=== PATIENT | male | born 1965 | race Caucasian/White ===

== ENCOUNTER 2016-06-10 05:56 | Emergency (ER) | payer OTHER, MEDICARE ==
[~2016-06-10] VITALS: Ht 182.9 cm; Wt 90.7 kg
[~2016-06-10 05:56] MED LIST: ADVAIR 250-501 EACH INH; ARIPIPRAZOLE5 M1 PO; ATIVAN1 M1 PO; ATIVAN1 MG PO; ATORVASTATIN CA10 M1 PO; AUGMENTIN 875 M1 TAB PO; CARDIZEM CD180 M1 PO; CARDIZEM CD180 MG PO; CENTRUM SILVER1 TAB PO; CLEOCIN HCL150 MG PO; CLEOCIN HCL300 MG PO; DIVALPROEX SOD250 M3 PO; FENOFIBRIC ACI135 M1 PO; FOLIC ACID 1 MG PO; GABAPENTIN300 M2 PO; GLIMEPIRIDE4 M1 PO; GLIMEPIRIDE4 MG PO; HEP-FORTE1 CAP PO; HYDROCODONE/ACE1 TA1 PO; HYDROXYZINE HYD50 MG PO; IBU800 MG PO; IBUPROFEN600 M1 PO; JANUVIA100 M1 PO; LISINOPRIL10 MG PO; LISINOPRIL30 M1 PO; LITHIUM CARBON450 M1 PO; LYRICA50 MG PO; MAGNESIUM OXID400 MG PO; METFORMIN HCL1000 M1 PO; METFORMIN HYD1000 MG PO; MOBIC15 MG PO; MULTI VITAMINS1 TAB PO; NICODERM C14 MG/24 H TOP; OCUFLOX5 ML OPH; OLANZAPINE15 MG PO; OLANZAPINE20 M1 PO; PERCOCET 325 MG1 TA2 PO; PERPHENAZINE4 MG PO; PREDNISONE50 M1 PO; PROBIOTIC FORMU1 CAP PO; PROVENTIL HFA6.7 GM INH; TOPCARE ASPIRI325 MG PO; TYLENOL #31 TAB PO; VENTOLIN HFA18 GM INH; VITAMIN B1100 MG PO; ZYPREXA10 M1 PO
[2016-06-10 06:07] VITALS: BP 113/67
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
--- NOTE | 2016-06-10 06:40 | RADIOLOGY REPORT ---
EXAMINATION: XR RIBS, LEFT CLINICAL INFORMATION: Fall. Left lower rib tenderness. COMPARISON: Chest radiograph 01/17/2016. TECHNIQUE: An AP view of the chest was obtained. 6 additional oblique projections of the left hemithorax were obtained. FINDINGS: There is a somewhat displaced acute fracture involving the anterior aspect of the left sixth rib near its costochondral articulation. There is no pneumothorax. Lungs are well-expanded. No focal consolidative disease or pleural effusion. The cardiac silhouette and upper mediastinal contours are normal. IMPRESSION: Acute nondisplaced left sixth rib fracture.
[2016-06-10] MEDS ORDERED: IBUPROFEN600 M1 PO (06:44)
[2016-06-10] MEDS ORDERED: PERCOCET 5-3251 EACH PO (06:44)
== END 2016-06-10 07:03 ==
LOC: ERH 05:56
DX: S22.32XA Fracture of one rib, left side, initial encounter for closed fracture (principal); X58.XXXA Exposure to other specified factors, initial encounter; Y93.9 Activity, unspecified; Y92.9 Unspecified place or not applicable
CPT/HCPCS: 71100-LT

== ENCOUNTER 2016-06-28 15:23 | Emergency (ER) | payer OTHER, MEDICARE ==
[~2016-06-28] VITALS: Ht 180.3 cm; Wt 90.7 kg
[~2016-06-28 15:23] MED LIST changes: +PERCOCET 5-3251 EACH PO
[2016-06-28] MEDS ORDERED: MULTI-DAY VITA1 EACH PO (16:02)
[2016-06-28] MEDS ORDERED: ASPIRIN EC325 M2 PO (16:02)
[2016-06-28] MEDS ORDERED: ABILIFY30 M1 PO (16:04)
[2016-06-28] MEDS ORDERED: MAGNESIUM500 M2 PO (16:04)
[2016-06-28] MEDS ORDERED: FOLIC ACID1 M1 PO (16:05)
[2016-06-28] MEDS ORDERED: LANTUS SOL100 UNIT/1 SC (16:07)
[2016-06-28] MEDS ORDERED: MIRTAZAPINE15 M2 (16:07)
[2016-06-28] MEDS ORDERED: NALTREXONE HCL50 M1 PO (16:08)
--- NOTE | 2016-06-28 16:46 | ED PSYCHIATRIC COMPLAINT ---
History of Present Illness General Chief Complaint: ETOH/Drug Related Complaint Stated Complaint: ETOH DETOX, ALSO PSYCHIATRIC HELP PER FRIEND Source: patient, old records Exam Limitations: no limitations Vital Signs & Intake/Output Vital Signs & Intake/Output Vital Signs Date Time Temp Pulse Resp B/P B/P Pulse O2 O2 Flow FiO2 Mean Ox Delivery Rate 06/29 0957 97.1 94 18 158/87 99 06/29 0537 98 18 153/82 06/29 0536 98.6 98 18 153/82 98 Room Air 06/29 0320 98.0 100 18 146/73 06/29 0320 98.3 100 18 146/73 98 Room Air 06/29 0224 98.2 102 18 144/71 98 Room Air 06/29 0133 97.0 97 20 152/78 06/29 0133 97.0 97 20 152/78 98 Room Air 06/29 0000 97.2 108 20 152/85 06/29 0000 97.2 108 20 152/85 100 Room Air 06/28 2110 97.0 98 18 145/80 06/28 2100 97.0 98 18 145/80 100 Room Air 06/28 1929 97.0 99 18 143/79 06/28 1928 97.0 99 18 143/79 98 Room Air 06/28 1816 96.2 100 20 143/80 98 Room Air 06/28 1547 98.1 100 16 145/87 99 Room Air ED Intake and Output 06/29 0000 06/28 1200 Intake Total 100 Output Total Balance 100 Intake, Oral 100 Patient 200 lb Weight Reconcile Medications Albuterol Sulfate (Proventil Hfa) 6.7 GM HFA.AER.AD 2 PUF INH Q4 WHEEZING Aripiprazole (Abilify) 30 MG TABLET 1 TAB PO DAILY MENTAL HEALTH (Reported) Aspirin (Ecotrin*) 325 MG TABLET.DR 1 TAB PO QAM HEART/BLOOD (Reported) Atorvastatin Calcium 10 MG TABLET 1 TAB PO DAILY CHOLESTEROL (Reported) Diltiazem HCl (Cardizem Cd) 180 MG CAP.ER.24H 1 CAP PO DAILY HEART (Reported ) Fenofibric Acid (Choline) (Fenofibric Acid) 135 MG CAPSULE.DR 1 CAP PO DAILY CHOLESTEROL (Reported) Fluticasone/Salmeterol (Advair 250-50 Diskus) 250 MCG-50 MCG/DOSE BLST.W.DEV 1 PUF INH BID SOB (Reported) Folic Acid 1 MG TABLET 1 TAB PO DAILY SUPPLEMENT (Reported) Glimepiride 4 MG TABLET 1 TAB PO BID DM (Reported) Ibuprofen 600 MG TABLET 1 TAB PO Q6PRN PRN pain with food Insulin Glargine,Hum.rec.anlog (Lantus Solostar) 100 UNIT/ML (3 ML) INSULN.PEN 20 UNIT SC QPM DM (Reported) Lisinopril 30 MG TABLET 1 TAB PO DAILY B/P (Reported) Magnesium Oxide (Magnesium) 500 MG CAPSULE 1 CAP PO DAILY SUPPLEMENT ( Reported) Mirtazapine (Unknown Strength) TABLET (Unknown Dose) UNKNOWN (Reported) Multivitamin (Multi-Day Vitamins) 1 EACH TABLET 1 TAB PO DAILY SUPPLEMENT ( Reported) Naltrexone HCl (Unknown Strength) TABLET (Unknown Dose) PO DAILY UNKNOWN ( Reported) Olanzapine 20 MG TABLET 1 TAB PO QPM MENTAL HEALTH (Reported) Olanzapine (Zyprexa) 10 MG TABLET 1 TAB PO QAM MENTAL HEALTH (Reported) Sitagliptin Phosphate (Januvia) 100 MG TABLET 1 TAB PO DAILY DIABETES ( Reported) Triage Note: PT STATES HE WENT TO GROUP AND WITH HIS HEAVY DRINKING OF ETOH THE CHOREOGRAPHY DIRECTOR FELT IT WAS TIME FOR HIM TO COME IN FOR HELP. PT DENIES SI OR HI. PT STATES HE DID SMOKE COCAINE ON MONDAY. PT LAST DRANK 1 HOUR AGO AND STATES HE WAS DRINKING VODKA. Triage Nurses Notes Reviewed? yes Onset: Just prior to arrival Duration: week(s):, constant, continues in ED Timing: recent history Severity: moderate Associated Symptoms: anxiety, impaired concentration, auditory hallucination HPI: Patient admits to heavy alcohol abuse trying to treat his auditory hallucination. He also admits to some cocaine use. Prior to admission he was at a group meeting and was urged to seek alcohol detox. Denies fever chills nausea vomiting diarrhea abdominal pain chest pain shortness breath headache dysuria rash bleeding homicidal ideation suicidal ideation. Reports when he stops taking alcohol he just feels weak without DTs or withdrawal seizures. (SELENA COSTELLO,JUANCARLOS) Allergies Coded Allergies: Penicillins (HAD A KID 06/28/16) quetiapine (Restless legs, difficulty breathing (From 2009) on 1000 mg/d ) (FAUZIA COSTELLO,ENRIQUE Frye) Past History Travel History Traveled to [place] past 21 day No Medical History Any Pertinent Medical History? 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 MOTHER (Ovarian Cancer). FATHER (Prostate cancer). Hx Contributory? No (JUANCARLOS WALTERS MD) Review of Systems Review of Systems Constitutional: Reports: no symptoms. EENTM: Reports: no symptoms. Respiratory: Reports: no symptoms. Cardiovascular: Reports: no symptoms. GI: Reports: no symptoms. Genitourinary: Reports: no symptoms. Musculoskeletal: Reports: no symptoms. Skin: Reports: no symptoms. Neurological/Psychological: Reports: see HPI, anxiety. Hematologic/Endocrine: Reports: no symptoms. Immunologic/Allergic: Reports: no symptoms. All Other Systems: Reviewed and Negative (JUANCARLOS WALTERS MD) Physical Exam Physical Exam General Appearance: well developed/nourished, alert, awake, anxious, mild distress Head: atraumatic, normal appearance Eyes: Bilateral: normal appearance, PERRL, EOMI. 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 patient not suicidal (SELENA COSTELLO,JUANCARLOS) Progress Differential Diagnosis: drug intoxication, drug overdose, drug withdrawal, electrolyte abnormality, hypoglycemia Plan of Care: Orders Procedure Date/time Status Regular Diet 06/29 B Active Regular Diet 06/28 D Complete EKG 06/28 2356 Active CIWA 06/28 1824 Active Patient Safety Monitor 06/28 164 Active ETHANOL 06/28 1646 Complete COMPREHENSIVE METABOLIC PANEL 06/28 1646 Complete CBC WITHOUT DIFFERENTIAL 06/28 1646 Complete ED CRISIS PSYCH CONSULT 06/28 1646 Active URINE DRUG SCREEN FOR ER ONLY 06/28 1557 Complete Current Medications Sig/Magdaleno Start time Last Medication Dose Stop Time Status Admin Albuterol Sulfate 2 PUF Q4 06/28 2199 AC 06/28 (Ventolin) 2108 Budesonide/ 2 PUF BID 06/28 2199 AC 06/29 Formoterol Fumarate 0958 (Symbicort) Olanzapine 20 MG QPM 06/28 2199 UNVr 06/28 (Zyprexa) 2108 Non-Formulary 0 SEE ADMIN CRITERIA 06/28 2014 UNVr Medication (NON FORMULARY) Laboratory Tests 06/28/16 1715: Anion Gap 15, Estimated GFR 59 L, BUN/Creatinine Ratio 15.4, Glucose 164 H, Calcium 10.0, Total Bilirubin 0.4, AST 76 H, ALT 54, Alkaline Phosphatase 68, Total Protein 7.4, Albumin 4.5, Globulin 2.9, Albumin/Globulin Ratio 1.6, CBC w Diff NO MAN DIFF REQ, RBC 3.35 L, MCV 94.9 H, MCH 31.5 H, RDW 14.4, MPV 6.7 L, Gran % 72.7, Lymphocytes % 20.1 L, Monocytes % 5.0, Eosinophils % 1.3, Basophils % 0.9, Absolute Granulocytes 7.1 H, Absolute Lymphocytes 2.0, Absolute Monocytes 0.5, Absolute Eosinophils 0.1, Absolute Basophils 0.1, PUBS MCHC 33.2, Serum Alcohol 206.0 06/28/16 1600: Urine Opiates Screen < 100.00, Methadone Screen 49, Barbiturate Screen < 60, Ur Phencyclidine Scrn < 6.00, Amphetamines Screen < 100, U Benzodiazepines Scrn < 85, Urine Cocaine Screen 987 H, Urine Cannabis Screen 25.40 Hand-Off Endorsed To: MICHELLE COSTELLO,RAJENDRA Hayden Endorsed Time: 1899 Pending: consult (SELENA COSTELLO,JUANCARLOS) Comments: 06/29/2016 7:15:59 AM 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 (MICHELLE COSTELLO,RAJENDRA Hayden) Departure Departure Condition: Stable Referrals: JENNIFER NEGRO APRN (PCP/Family) Departure Forms: Customer Survey General Discharge Information (JUANCARLOS WALTERS MD) Departure Disposition: HOME OR SELF CARE Clinical Impression Primary Impression: Alcohol dependence with intoxication Qualifiers: Complication of substance-induced condition: with delirium Qualified Code: F10.221 - Alcohol dependence with intoxication delirium Secondary Impressions: Cocaine abuse, Schizophrenia Additional Instructions: Follow up with [facility] return for any concerns (FAUZIA COSTELLO,ENRIQUE Frye)
[2016-06-28 17:28] LABS: ABSOLUTE BASOPHIL COUNT 0.1 /CUMM (0.0-0.2); ABSOLUTE EOSINOPHIL COUNT 0.1 /CUMM (0.0-0.7); ABSOLUTE GRANULOCYTE CT 7.1 /CUMM (1.4-6.5); ABSOLUTE MONOCYTE COUNT 0.5 /CUMM (0.10-0.60); BASOPHIL % 0.9 % (0.0-2.0); EOSINOPHIL % 1.3 % (0-5); GRANULOCYTE % 72.7 % (42.2-75.2); HEMATOCRIT 31.8 % (42-52); MEAN CORPUSCULAR HGB 31.5 PG (27.0-31.0); MEAN CORPUSCULAR HGB CONC 33.2 G/DL (33.0-37.0); MEAN CORPUSCULAR VOLUME 94.9 FL (80.0-94.0); MEAN PLATELET VOLUME 6.7 FL (7.4-10.4); PLATELET COUNT 258 /CUMM (130-400); RBC DISTRIBUTION WIDTH 14.4 % (11.5-14.5); RED BLOOD CELL CT 3.35 /CUMM (4.70-6.10); WHITE BLOOD CELL COUNT 9.8 /CUMM (4.8-10.8)
--- NOTE | 2016-06-28 20:07 | ED PSY CRISIS COLLATERAL NOTE ---
Collateral Note Collateral Note Family/Inform/Kelly Contacts: Spoke with Tlaisha Madison ([phone]), to gain collateral information. Talisha notes that she has known the patient, "for a number of years," and they are good friends. Talisha notes that the patient is "Schizophrenic and a severe alcoholic. " Talisha notes that the patient generally hears beeps and bells when symptoms increase, noting that he was hearing them today. She notes that the patient is currently in treatment with [facility], however she does not believe him to be treatment compliant. She states in addition to the alcohol, she found him "smoking crack" on Monday. She notes that he is and that he has not see his children in over 20 years. SHe believes that he needs help for his alcohol abuse and his mental health issues. She was not clear which is the primary and which type of treatment he needed. She notes that she is taking care of his dog and that she will call tomorrow to check on the plan of care.
--- NOTE | 2016-06-29 09:09 | ED PSYCH CRISIS CONSULTATION ---
See Addendum Crisis Consult Basic Assessment Date of Consult: 06/29/16 Responsible Person/Accompanied By: Self/Talisha Madison [facility] [phone] Insurance Authorization: Insurance #1: Insurance name: MEDICARE A Phone number: Policy number: [id number] Group number: Authorization number: ED Provider: Patient's ED Provider: JUANCARLOS WALTERS MD Primary Care Physician: Patient's PCP: JENNIFER NEGRO APRN PCP's Current Psychiatrist: Crystal Morgan APRN at [facility] Chief Complaint: ETOH/Drug Related Complaint Patient's Quote: The voices get so intense, I'd rather drink than hear them." Present Illness: 50 M presents to ED 06/28/16 1525 with CC ETOH detox, last drink vodka one hour before. He had been in 1:1 session with his therapist, Noa Méndez, at [facility] that day, and he was told to come to the ED for help for his heavy alcohol use. He reports he drinks 1-1/2 pints of vodka daily. He reports he stopped smoking cannabis one month ago. He also smoked cocaine on 06/26/16. Please see serum/utox screen elsewhere in this report. He is followed by [facility] for psychotropic medications by Carito Morgan APRN. Last visit 06/24/16; next visit 07/06/16. Current psych medications: Naltrexone 50 mg PO bedtime Mirtazapine 15 mg PO bedtime Aripiprazole 30 mg PO daily Olanzapine 10 mg PO daily Olanzapine 20 mg PO bedtime Patient's Address: [address] [place] [address] Other Phone Number: Who Do You Live With? Patient/Self Family/Informants Interviewed: Friend, Talisha, collateral with clinician 06/28/16 ; see note. 06/28/16: Noa Méndez, clinician at Care: The patient should have a 28 day rehab program, but worries his brother, Riley, may not be able to care for his dog, a social support. dog Allergies - Coded Allergies: Penicillins (HAD A KID 06/29/16) quetiapine (Restless legs, difficulty breathing (From 2009) on 1000 mg/d ) Current Medications - Scheduled Medications Albuterol Sulfate (Proventil Hfa) 6.7 GM HFA.AER.AD 2 PUF INH Q4 WHEEZING #1 INHAL Prescribed by YOGESH SHORT MD on 12/11/15 Aripiprazole (Abilify) 30 MG TABLET 1 TAB PO DAILY MENTAL HEALTH #7 (Reported ) Entered as Reported by GOMEZ HUMPHREYS on 06/28/16 160 Aspirin (Ecotrin*) 325 MG TABLET. 1 TAB PO QAM HEART/BLOOD (Reported) Entered as Reported by GOMEZ HUMPHREYS on 06/28/16 160 Atorvastatin Calcium 10 MG TABLET 1 TAB PO DAILY CHOLESTEROL #90 (Reported) Entered as Reported by NOA OG on 11/06/15 191 Diltiazem HCl (Cardizem Cd) 180 MG CAP.ER.24H 1 CAP PO DAILY HEART #90 ( Reported) Entered as Reported by NOA OG on 11/06/15 191 Fenofibric Acid (Choline) (Fenofibric Acid) 135 MG CAPSULE. 1 CAP PO DAILY CHOLESTEROL #90 (Reported) Entered as Reported by NOA OG on 11/06/15 191 Fluticasone/Salmeterol (Advair 250-50 Diskus) 250 MCG-50 MCG/DOSE BLST.W.DEV 1 PUF INH BID SOB (Reported) Entered as Reported by LANCE RUELAS on 03/11/16 2222 Folic Acid 1 MG TABLET 1 TAB PO DAILY SUPPLEMENT (Reported) Entered as Reported by GOMEZ HUMPHREYS on 06/28/16 1605 Glimepiride 4 MG TABLET 1 TAB PO BID DM #90 (Reported) Entered as Reported by NOA OG on 11/06/15 191 Insulin Glargine,Hum.rec.anlog (Lantus Solostar) 100 UNIT/ML (3 ML) INSULN.PEN 20 UNIT SC QPM DM #15 (Reported) Entered as Reported by GOMEZ HUMPHREYS on 06/28/16 1607 Lisinopril 30 MG TABLET 1 TAB PO DAILY B/P #90 (Reported) Entered as Reported by NOA OG on 11/06/15 1913 Magnesium Oxide (Magnesium) 500 MG CAPSULE 1 CAP PO DAILY SUPPLEMENT ( Reported) Entered as Reported by GOMEZ HUMPHREYS on 06/28/16 1604 Multivitamin (Multi-Day Vitamins) 1 EACH TABLET 1 TAB PO DAILY SUPPLEMENT ( Reported) Entered as Reported by GOMEZ HUMPHREYS on 06/28/16 1602 Naltrexone HCl (Unknown Strength) TABLET (Unknown Dose) PO DAILY UNKNOWN #30 (Reported) Entered as Reported by GOMEZ HUMPHREYS on 06/28/16 1608 Olanzapine 20 MG TABLET 1 TAB PO QPM MENTAL HEALTH #90 (Reported) Entered as Reported by NOA OG on 11/06/15 1912 Olanzapine (Zyprexa) 10 MG TABLET 1 TAB PO QAM MENTAL HEALTH #30 (Reported) Entered as Reported by GOMEZ HUMPHREYS on 01/17/16 1813 Sitagliptin Phosphate (Januvia) 100 MG TABLET 1 TAB PO DAILY DIABETES #90 ( Reported) Entered as Reported by NOA OG on 11/06/15 1914 Scheduled PRN Medications Ibuprofen 600 MG TABLET 1 TAB PO Q6PRN PRN pain #50 TAB Prescribed by JUANCARLOS WALTERS MD on 06/10/16 Last Taken: At an unknown date and time Miscellaneous Medications Mirtazapine (Unknown Strength) TABLET (Unknown Dose) UNKNOWN #30 (Reported) Entered as Reported by GOMEZ HUMPHREYS on 06/28/16 1607 Laboratory Results: Laboratory Tests 06/28/16 1715: Anion Gap 15, Estimated GFR 59 L, BUN/Creatinine Ratio 15.4, Glucose 164 H, Calcium 10.0, Total Bilirubin 0.4, AST 76 H, ALT 54, Alkaline Phosphatase 68, Total Protein 7.4, Albumin 4.5, Globulin 2.9, Albumin/Globulin Ratio 1.6, CBC w Diff NO MAN DIFF REQ, RBC 3.35 L, MCV 94.9 H, MCH 31.5 H, RDW 14.4, MPV 6.7 L, Gran % 72.7, Lymphocytes % 20.1 L, Monocytes % 5.0, Eosinophils % 1.3, Basophils % 0.9, Absolute Granulocytes 7.1 H, Absolute Lymphocytes 2.0, Absolute Monocytes 0.5, Absolute Eosinophils 0.1, Absolute Basophils 0.1, PUBS MCHC 33.2, Serum Alcohol 206.0 06/28/16 1600: Urine Opiates Screen < 100.00, Methadone Screen 49, Barbiturate Screen < 60, Ur Phencyclidine Scrn < 6.00, Amphetamines Screen < 100, U Benzodiazepines Scrn < 85, Urine Cocaine Screen 987 H, Urine Cannabis Screen 25.40 Past History Past Medical History Neurological: peripheral neuropathy EENT: NONE Cardiovascular: hypertension, hyperlipidemia Respiratory: COPD Gastrointestinal: NONE Hepatic: NONE Renal: NONE Musculoskeletal: NONE Psychiatric: alcohol dependence, schizophrenia, substance abuse Endocrine: NIDDM Blood Disorders: NONE Cancer(s): NONE 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 Physical Limitations (Interventions): None known Psychiatric Treatment History Psych Treatment Psychiatric Treatment Yes Inpatient Treatment Yes Outpatient Treatment Yes Location of Treatment and [facility] Reason for Treatment Schizophrenia and alcohol/substance abuse Dates of Treatment Currently in [place] at Care Response to Treatment UNK Diagnosis by History: See below Substance Use/Abuse History Drug Use/Abuse Substances Used/Abused Yes Substance Used/Abused Alcohol How much used/taken 1-1/2 pints How often daily For how long Does not remember Substance Abuse Treatment Substance Abuse Treatment Past Substance Abuse [place] Yes Inpatient Treatment No (UNK) Outpatient Treatment Yes Location of Treatment [facility] 11/2015 Reason for Treatment ETOH, cannabis Response to Treatment Discharged, due to continued cannabis use and alcohol use on weekends. Comments: The patient reports he is ready and motivated for treatment at [facility]. Current Mental Status Mental Status Orientation: Person, Place, Situation Affect: Constricted Speech: Pressured Neuro-vegetative: Sleep Disturbance Behaviors Thought Process: One instance of loose association, but otherwise normal. Thought Content: Baseline auditory hallucinations; pt not in distress. Memory: WNL Insight: Fair SI/HI Risk Assessment Past Suicidal Ideation/Attempts No (Denies) Current Suicidal Ideation/Att No Past Homicidal Ideation/Att: No (Denies) Current Homicidal Ideation/Attempts No Degree of Intent: None Risk Factors: SA/MH hospitalized, substance abuse, lives alone, male PTSD Checklist PTSD Done? patient declined ED Management Sitter: No Restraints: No DSM5/PS Stressors/Medical Prob Diagnosis' (DSM 5, Stressors, Medical): F20.9 Schizophrenia (Continuous AH) F10.2 Alcohol Use DIsorder, Severe, Recurrent F12.1 Cannabis Use Disorder Current GAF: 42 Departure Disposition Psych Medical Clearance Date: 06/29/16 Medically Cleared at: 1026 Time Started: 809 Time Ended: 834 Psychiatrist Consulted: Romeo Machuca Date Disposition Established: 06/29/16 Time Disposition Established: 1027 Plan for Disposition - Modality: IOP Facility: [facility] Follow-up Appt Date: 06/30/16 Follow-Up Appt Time: 0900 Contact: Indu Rationale for Disposition: Breathalyzer 0.0 this morning. Not delirious. Baseline auditory hallucinations present but not distressing; medicated with home dosing of Zypreza and Abilify. IOP intake at 06/30/16 0900 Additional Instructions: Patient given a card with [facility] intake appointment, and verbalizes understanding that he will appear on , 06/30/16, at 0900, at [address] [place] [address]. He is to bring his photo ID and insurance card. Pt given number there - [phone]. He states that he has not used cannabis in one month, and will continue to avoid it. He will abstain from alcohol and other substances. Referrals JENNIFER NEGRO APRN (PCP/Family) [facility], then Care
[2016-06-29 09:57] VITALS: BP 158/87
== END 2016-06-29 10:33 ==
LOC: ERH 15:23
PROVIDERS: Emergency Medicine
DX: F10.229 Alcohol dependence with intoxication, unspecified (principal); F14.10 Cocaine abuse, uncomplicated; F20.9 Schizophrenia, unspecified
CPT/HCPCS: 80307; 93005; 93010; G0463; G0480; J3490

== ENCOUNTER 2017-05-27 01:00 | Emergency (ER) | payer OTHER, MEDICARE ==
[~2017-05-27] VITALS: Ht 180.3 cm; Wt 99.8 kg
[~2017-05-27 01:00] MED LIST changes: +ABILIFY30 M1 PO; +ASPIRIN EC325 M2 PO; +FOLIC ACID1 M1 PO; +LANTUS SOL100 UNIT/1 SC; +MAGNESIUM500 M2 PO; +MIRTAZAPINE15 M2; +MULTI-DAY VITA1 EACH PO; +NALTREXONE HCL50 M1 PO
[2017-05-27 01:33] VITALS: BP 130/77
== END 2017-05-27 02:43 | disposition admitted as inpatient to this hospital (09) ==
LOC: ERH 01:00
DX: E16.2 Hypoglycemia, unspecified (principal)

== ENCOUNTER 2017-06-23 15:17 | Inpatient (IN) | payer OTHER, MEDICARE ==
[~2017-06-23] VITALS: Ht 180.3 cm; Wt 88.1 kg
[~2017-06-23 15:17] MED LIST changes: +DAILY VALUE1 EACH PO; -MULTI-DAY VITA1 EACH PO; +PREDNISONE20 M1 PO
--- NOTE | 2017-06-23 15:58 | ED PSYCHIATRIC COMPLAINT ---
See Addendum History of Present Illness General Chief Complaint: Psychiatric Related Complaint Stated Complaint: PT STOPED TAKING HIS PSYCH MEDS Source: patient Exam Limitations: no limitations Vital Signs & Intake/Output Vital Signs & Intake/Output Vital Signs Date Time Temp Pulse Resp B/P B/P Pulse O2 O2 Flow FiO2 Mean Ox Delivery Rate 06/25 0059 97.5 100 18 133/81 100 Room Air 06/24 2241 97.7 110 20 124/64 96 06/24 1945 97.3 112 20 111/68 98 06/24 1611 98.1 113 20 116/56 98 Room Air 06/24 1303 97.9 96 20 142/77 98 Room Air 06/24 1100 98.1 97 18 144/69 06/24 1000 98.1 97 18 144/69 06/24 1000 98.1 97 18 144/69 99 06/24 0800 98.1 84 18 140/84 06/24 0800 98.1 84 18 140/84 98 Allergies Coded Allergies: Penicillins (HAD A KID 06/23/17) quetiapine (Restless legs, difficulty breathing (From 2009) on 1000 mg/d ) Triage Note: PT TO ED FOR RACING THOUGHTS, CAN'T CONCENTRATE. PT HAS STOPPED PSYCH MEDS A MONTH AGO. +VISUAL HALLUCINATIONS, "BRIGHT LIGHTS", AND FRIEND REPORTS HEARING VOICES (GOVERNMENT, "GOVERNMENT PUT CHIP IN MY BRAIN). PT BECAME EMOTIONAL IN TRIAGE AND REPORTS THAT HE WOULDN'T CARE IF HE . TAKEN TO [facility] Triage Nurses Notes Reviewed? yes Onset: Abrupt Duration: week(s): (4) Timing: recent history Severity: severe Severity Numbers: 9 Associated Symptoms: anxiety, impaired concentration, suicidal ideation HPI: Patient is a 51-year-old male with history of anxiety and depression presenting to the emergency department with a friend who with chief complaint of being off of his medications for the past one month. He reports that they were according to alleviate decided to stop taking them patient also reports that he self medicates with alcohol daily. Has been drinking several shots of vodka daily to help with symptoms. Last drink was just prior to arrival. Denies any drug use. Patient denies any active suicidal ideation, reports that if he were to he "wouldn't care". According to family members they have noticed that he is given off of his medications but the patient doesn't. Denies any abdominal pain chest pain palpitations and shortness of breath. Nothing seems to make symptoms better or worse. Denies any homicidal ideation. Reports that he thinks the government put a chip in his brain. Friend also reports that he's been having visual hallucinations, (Marisabel JIAN,Arcelia) Reconcile Medications Albuterol Sulfate (Proventil Hfa) 6.7 GM HFA.AER.AD 2 PUF INH Q4 WHEEZING Aspirin (Ecotrin*) 325 MG TABLET.DR 1 TAB PO QPM HEART/BLOOD (Reported) Benztropine Mesylate (Unknown Strength) TABLET (Unknown Dose) PO QPM MENTAL HEALTH (Reported) Diltiazem HCl (Cardizem Cd) 180 MG CAP.ER.24H 1 CAP PO DAILY HEART (Reported ) Fenofibric Acid (Choline) (Fenofibric Acid) 135 MG CAPSULE.DR 1 CAP PO DAILY CHOLESTEROL (Reported) Fluticasone/Salmeterol (Advair 250-50 Diskus) 250 MCG-50 MCG/DOSE BLST.W.DEV 1 PUF INH BID SOB (Reported) Gabapentin (Unknown Strength) CAPSULE (Unknown Dose) PO TID MOOD (Reported) Glimepiride 4 MG TABLET 1 TAB PO BID DM (Reported) Insulin Glargine,Hum.rec.anlog (Lantus Solostar) 100 UNIT/ML (3 ML) INSULN.PEN 25 UNIT SC QPM DM (Reported) Insulin Glargine,Hum.rec.anlog (Lantus Solostar) 100 UNIT/ML (3 ML) INSULN.PEN 15 UNITS SC QAM DM (Reported) Lisinopril 30 MG TABLET 1 TAB PO DAILY B/P (Reported) Magnesium Oxide (Magnesium) 400 MG CAPSULE 1 CAP PO DAILY SUPPLEMENT ( Reported) Multivitamin (Daily Value) 1 EACH TABLET 1 TAB PO DAILY SUPPLEMENT (Reported) Olanzapine 20 MG TABLET 1 TAB PO BID MENTAL HEALTH (Reported) Perphenazine (Unknown Strength) TABLET (Unknown Dose) PO QPM MENTAL HEALTH ( Reported) Sitagliptin Phosphate (Januvia) 100 MG TABLET 1 TAB PO DAILY DIABETES ( Reported) Vortioxetine Hydrobromide (Brintellix) (Unknown Strength) TABLET (Unknown Dose ) PO DAILY MENTAL HEALTH (Reported) (Dominique COSTELLO,Baldo.) Past History Travel History Traveled to [place] past 21 day No Medical History Any Pertinent Medical History? 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 MOTHER (Ovarian Cancer). FATHER (Prostate cancer). Hx Contributory? No (Arcelia Pollard) Review of Systems Review of Systems Constitutional: Reports: no symptoms. Comments Review of systems: See HPI, All other systems negative. Constitutional, no chills fever or weight loss HEENT: No visual changes no sore throat no congestion Cardiovascular: No chest pain ,palpitation Skin, no jaundice no rashes Respiratory: No dyspnea cough sputum or hemoptysis GI: No nausea no vomiting : No dysuria No hematuria Muscle skeletal: no back pain, no neck pain, Neurologic: No numbness no confusion NO HEADACHES Psych: POS ANXIETY, DEPRESSION Heme/endocrine: No bruising no bleeding no polyuria or polydipsia Immunology: No splenectomy or history of AIDS (Arcelia Pollard) Physical Exam Physical Exam General Appearance: well developed/nourished, no apparent distress, alert, awake , comfortable Neurological/Psychiatric: oriented x 3 Comments: Well-developed well-nourished person in no acute distress HEENT:Pupils equally round and reactive to light and accommodation. Nose is atraumatic. External auditory canal and Tympanic membranes clear. Pharynx normal. No swelling or edema. Neck: NORMAL INSPECTION Cardiovascular: TACHY rate and rhythmS Respiratory: Chest nontender. No respiratory distress.breath sounds clear to auscultation bilaterally Extremity: No edema Neuro: Alert oriented x3, CN2-12 GROSSLY INTACT. Skin: No appreciable rash on exposed skin, skin is warm and dry. Psych: ANXIOUS, REPORTS HALLUCINATIONS. Tangential thought process. appears intoxicated. SAD PERSONS Done? patient not suicidal (Marisabel JAIN,Arcelia) Progress Differential Diagnosis: generalized anxiety disorder, polysubstance abuse, alcohol abuse, alcohol withdrawal, electrolyte abnormality, thyroid dysfunction Plan of Care: Orders Procedure Date/time Status Continuous Observation Monitor 06/25 0700 Active Continuous Observation Monitor 06/25 0300 Active Continuous Observation Monitor 06/24 2300 Active Continuous Observation Monitor 06/24 1900 Active Current Medications Sig/Magdaleno Start time Last Medication Dose Stop Time Status Admin Aspirin Buffered 325 MG QPM 06/24 2100 CAN (Ecotrin) Insulin Detemir 25 UNITS QPM 06/24 2100 UNVr 06/24 (Levemir) 211 Metoclopramide HCl 8 MG ONCE ONE 06/24 1800 CAN (Reglan) 06/24 1801 Albuterol Sulfate 2 PUF Q4 06/24 1400 UNVr 06/24 (Ventolin) 211 Gabapentin 300 MG Q8 06/24 1400 UNVr 06/24 (Neurontin) 211 Perphenazine 4 MG BID 06/24 1036 UNVr 06/24 (Trilafon 2 MG 2116 Tablet) Sitagliptin Phosphate 100 MG DAILY 06/24 1034 UNVr 06/24 (JANUVIA) 1100 Lisinopril 20 MG DAILY 06/24 1033 UNVr 06/24 (Prinivil) 1100 Magnesium Oxide 400 MG DAILY 06/24 1033 UNVr 06/24 (Mag-Ox) 1100 Insulin Detemir 15 UNITS QAM 06/24 1025 UNVr 06/24 (Levemir) 1100 Budesonide/ 2 PUF BID 06/24 1024 UNVr 06/24 Formoterol Fumarate 211 (Symbicort) Glimepiride 1 MG DAILY AC 06/24 1024 CAN (Amaryl) Diltiazem HCl 180 MG DAILY 06/24 1023 CAN (Cardizem CD) Benztropine Mesylate 1 MG BID 06/24 1022 UNVr 06/24 (Cogentin 1 MG 2116 Tablet) Aripiprazole 30 MG DAILY 06/24 0900 UNVr 06/24 (Abilify) 0920 Aspirin 325 MG DAILY 06/24 0900 UNVr 06/24 (Aspirin) 0920 Diltiazem HCl 180 MG DAILY 06/24 0900 UNVr 06/24 (Cardizem CD) 0920 Glimepiride 4 MG 0800,1700 06/24 0800 AC 06/24 (Amaryl) 1835 Albuterol Sulfate 2 PUF Q4P PRN 06/23 2300 AC (Ventolin) Hand-Off Endorsed To: Mekhi Rangel DO Endorsed Time: 1999 Pending: consult Comments: Patient will be signed out to Dr. rangel pending consult from crisis. Patient will likely be holdover for re-eval in the morning. (Arcelia Pollard) Initial ED EKG: none (Mekhi Rangel DO) Hand-Off Endorsed To: Mekhi Rendno MD Endorsed Time: 0700 Pending: consult (Dominique COSTELLO,Randy Frye) Comments: 06/24/2017 7:08:43 AM patient signed out to me by Dr. Fox at shift loom changer. 06/24/2017 9:26:46 AM per crisis, bed search progress. 06/24/2017 7:24:16 PM patient signed out to Dr. Lal at shift loom changer. (Mekhi Rendon MD) Hand-Off Endorsed To: Mekhi Rendon MD Endorsed Time: 07 (Lukasz COSTELLO,Radu) Departure Departure Disposition: STILL A PATIENT Condition: Stable Clinical Impression Primary Impression: Anxiety Secondary Impressions: Alcohol abuse Referrals: Kayleen Robbins APRN (PCP/Family) Departure Forms: Customer Survey General Discharge Information (Arcelia Pollard) Departure Comments 06/23/17 8:30 PM Patient was signed out to me by Arcelia Petit. He is pending crisis evaluation. He will be signed out to Dr. Fox at 11 pm (Mekhi Rangel DO) PA/GRINDING ROOM SUPERVISOR Co-Sign Statement Statement: ED Attending supervision documentation- [X] I saw and evaluated the patient. I have also reviewed all the pertinent lab results and diagnostic results. I agree with the findings and the plan of care as documented in the PA's/GRINDING ROOM SUPERVISOR's documentation. [X] I have reviewed the ED Record and agree with the PA's/GRINDING ROOM SUPERVISOR's documentation. [] Additions or exceptions (if any) to the PAs/GRINDING ROOM SUPERVISOR's note and plan are summarized below: [] (Dominique COSTELLO,Randy Frye) Departure Forms: Customer Survey General Discharge Information (Marisabel JAIN,Arcelia) Departure Comments 06/23/17 8:30 PM Patient was signed out to me by Arcelia Petit. He is pending crisis evaluation. He will be signed out to Dr. Fox at 11 pm (Mekhi Rangel DO) PA/GRINDING ROOM SUPERVISOR Co-Sign Statement Statement: ED Attending supervision documentation- [X] I saw and evaluated the patient. I have also reviewed all the pertinent lab results and diagnostic results. I agree with the findings and the plan of care as documented in the PA's/GRINDING ROOM SUPERVISOR's documentation. [X] I have reviewed the ED Record and agree with the PA's/GRINDING ROOM SUPERVISOR's documentation. [] Additions or exceptions (if any) to the PAs/GRINDING ROOM SUPERVISOR's note and plan are summarized below: [] (Dominique COSTELLO,Randy Frye)
[2017-06-23 17:03] LABS: ABSOLUTE BASOPHIL COUNT 0.1 /CUMM (0.0-0.2); ABSOLUTE EOSINOPHIL COUNT 0.1 /CUMM (0.0-0.7); ABSOLUTE GRANULOCYTE CT 5.7 /CUMM (1.4-6.5); ABSOLUTE MONOCYTE COUNT 0.7 /CUMM (0.10-0.60); BASOPHIL % 0.8 % (0.0-2.0); EOSINOPHIL % 0.9 % (0-5); GRANULOCYTE % 59.4 % (42.2-75.2); HEMATOCRIT 37.5 % (42-52); MEAN CORPUSCULAR HGB 30.2 PG (27.0-31.0); MEAN CORPUSCULAR HGB CONC 33.3 G/DL (33.0-37.0); MEAN CORPUSCULAR VOLUME 90.7 FL (80.0-94.0); MEAN PLATELET VOLUME 7.8 FL (7.4-10.4); PLATELET COUNT 273 /CUMM (130-400); RBC DISTRIBUTION WIDTH 14.5 % (11.5-14.5); RED BLOOD CELL CT 4.14 /CUMM (4.70-6.10); WHITE BLOOD CELL COUNT 9.6 /CUMM (4.8-10.8)
[2017-06-23] MEDS ORDERED: LANTUS SOL100 UNIT/1 SC (21:22)
[2017-06-23] MEDS ORDERED: MAGNESIUM400 M1 PO (21:23)
[2017-06-23] MEDS ORDERED: PERPHENAZINE8 M1 PO (21:26)
[2017-06-23] MEDS ORDERED: GABAPENTIN400 M2 PO (21:27)
[2017-06-23] MEDS ORDERED: BENZTROPINE MESY2 M1 PO (21:28)
[2017-06-23] MEDS ORDERED: BRINTELLIX20 M1 PO (21:31)
[2017-06-24 00:54] VITALS: BP 149/96
[2017-06-24 03:28] VITALS: BP 162/89
[2017-06-24 06:09] VITALS: BP 137/82
[2017-06-24 08:00] VITALS: BP 140/84
--- NOTE | 2017-06-24 09:19 | ED PSYCH CRISIS CONSULTATION ---
See Addendum Crisis Consult Basic Assessment Date of Consult: 06/24/17 Responsible Person/Accompanied By: Brought in by friend Talisha Insurance Authorization: Insurance #1: Insurance name: MEDICARE A Phone number: Policy number: [id number] Group number: Authorization number: ED Provider: Patient's ED Provider: Mekhi Rangel DO Primary Care Physician: Patient's PCP: Kayleen Robbins APRN PCP's Current Psychiatrist: [facility] Chief Complaint: Psychiatric Related Complaint Patient's Quote: " I stopped taking my antipsychotic medications about 1.5 months ago." Present Illness: The patient is a 51 year old, male self presenting to the ED with worsening symptoms of depression and psychosis. The patient presents as alert, oriented, calm and cooperative with good insight into his symptoms. He has a long history of mental health and substance abuse issues with subsequent treatment episodes. He states that he has been taking antipsychotics for 30 years and he did not get any benefit from them, therefore about 1.5 months ago he stopped taking his medications. He has been in treatment with [facility], however states that he also stopped attending treatment about 1.5 months ago. He reports that he has been experiencing worsening depression (rating it a 7 or 8 out of 10, 10 being the most severe), anxiety (rating it a 10 out of 10, 10 being most severe) and increased paranoia, VH and AH. He states that he would like to restart medications, even though he does not think they will help. He reports feeling helpless, hopeless, useless and worthless secondary to his mental health issues. He has been hearing high pitched squealing, and notes that it is worrisome to him, because he does not know when it will stop and has no control over it. He has been seeing flashes of lights and shadows, noting that he has seen gremlins, in the past. He reports a long standing delusion that the government or police have put a chip in his brain, to see out of his eyes and to hear out of his ears. He states that because of the chip his dreams are sculpted by his brain, noting this is very distressing for him. He reports that the only thing that helps his symptoms is alcohol, therefore has been drinking 2 pints of vodka, daily. He reports that he has had decreased concentration, motivation and has been spending most of his days sleeping. He does not have active suicidal ideations or a plan, however wishes that he was and states that he would not care if he were . He states that his dog, Manju is the only thing he lives for and that he would not kill himself, because he would not do that to his dog. He has a history of smoking Cannabis, noting that he has only used 1 time in the last 6 months. He resides alone with his dog in an apartment, is and has 3 children (he only has contact with 1 daughter). He has been on Social Security Disability for the last 10 years. He reports that in addition to his mental health symptoms, that transportation is a significant issue for him. He does state that his friend, Talisha ([phone]), is very supportive and assists with transportation for him. SW spoke to Talisha, who states that the patient has been spiraling out of control. Talisha states that the patient stopped his medications and has been angry, shaking and pulling at his hair. Talisha states that the patient has been complaining of hearing beeps and buzzers and seeing flashing lights. Talisha states that the patient always believes that the government put a chip in his brain. Talisha reports that in addition to drinking alcohol, that the patient has been smoking Crack Cocaine. Talisha believes that he needs to be back on his medications. Patient's Address: [address] [place] [address] Other Phone Number: Who Do You Live With? Other (see notes) Family/Informants Interviewed: Friend Talisha Madison- [phone] Allergies - Coded Allergies: Penicillins (HAD A KID 06/23/17) quetiapine (Restless legs, difficulty breathing (From 2009) on 1000 mg/d ) Current Medications - Scheduled Medications Albuterol Sulfate (Proventil Hfa) 6.7 GM HFA.AER.AD 2 PUF INH Q4 WHEEZING #1 INHAL Prescribed by Sandhya Godoy MD on 12/11/15 Last Taken: 06/22/17 Aspirin (Ecotrin*) 325 MG TABLET.DR 1 TAB PO QPM HEART/BLOOD (Reported) Entered as Reported by Lupe Wilson on 06/28/161601 Benztropine Mesylate (Unknown Strength) TABLET (Unknown Dose) PO QPM MENTAL HEALTH #30 (Reported) Entered as Reported by Lupe Wilson on 06/23/172127 Diltiazem HCl (Cardizem Cd) 180 MG CAP.ER.24H 1 CAP PO DAILY HEART #90 ( Reported) Entered as Reported by Noa Morrow on 11/06/151912 Fenofibric Acid (Choline) (Fenofibric Acid) 135 MG CAPSULE.DR 1 CAP PO DAILY CHOLESTEROL #90 (Reported) Entered as Reported by Noa Morrow on 11/06/151913 Last Taken: Unknown Dose at an unknown date and time Fluticasone/Salmeterol (Advair 250-50 Diskus) 250 MCG-50 MCG/DOSE BLST.W.DEV 1 PUF INH BID SOB (Reported) Entered as Reported by Nel Gamble on 03/11/162221 Last Taken: 06/22/17 Gabapentin (Unknown Strength) CAPSULE (Unknown Dose) PO TID MOOD #90 ( Reported) Entered as Reported by Lupe Wilson on 06/23/172126 Glimepiride 4 MG TABLET 1 TAB PO BID DM #90 (Reported) Entered as Reported by Noa Morrow on 11/06/151911 Last Taken: 06/22/17 Insulin Glargine,Hum.rec.anlog (Lantus Solostar) 100 UNIT/ML (3 ML) INSULN.PEN 25 UNIT SC QPM DM #15 (Reported) Entered as Reported by Lupe Wilson on 06/28/161606 Insulin Glargine,Hum.rec.anlog (Lantus Solostar) 100 UNIT/ML (3 ML) INSULN.PEN 15 UNITS SC QAM DM (Reported) Entered as Reported by Lupe Wilson on 06/23/172121 Lisinopril 30 MG TABLET 1 TAB PO DAILY B/P #90 (Reported) Entered as Reported by Noa Morrow on 08/26/16 1913 Magnesium Oxide (Magnesium) 400 MG CAPSULE 1 CAP PO DAILY SUPPLEMENT ( Reported) Entered as Reported by Lupe Wilson on 06/23/172122 Multivitamin (Daily Value) 1 EACH TABLET 1 TAB PO DAILY SUPPLEMENT (Reported) Entered as Reported by Lupe Wilson on 06/28/16 1602 Last Taken: 06/22/17 Olanzapine 20 MG TABLET 1 TAB PO BID MENTAL HEALTH #90 (Reported) Entered as Reported by Noa Morrow on 11/06/15 191 Last Taken: Unknown Dose at an unknown date and time Perphenazine (Unknown Strength) TABLET (Unknown Dose) PO QPM MENTAL HEALTH #30 (Reported) Entered as Reported by Lupe Wilson on 06/23/172125 Sitagliptin Phosphate (Januvia) 100 MG TABLET 1 TAB PO DAILY DIABETES #90 ( Reported) Entered as Reported by Noa Mororw on 11/06/151913 Vortioxetine Hydrobromide (Brintellix) (Unknown Strength) TABLET (Unknown Dose ) PO DAILY MENTAL HEALTH #30 (Reported) Entered as Reported by Lupe Wilson on 06/23/172130 Laboratory Results: Laboratory Tests 06/23/17 1647: Anion Gap 16, Estimated GFR > 60, BUN/Creatinine Ratio 23.3, Glucose 255 H, Calcium 10.7 H, Total Bilirubin 0.4, AST 35, ALT 39, Alkaline Phosphatase 53, Total Protein 7.6, Albumin 4.7, Globulin 2.9, Albumin/Globulin Ratio 1.6, TSH & T3 &Free T4 Intrp 1.200, CBC w Diff NO MAN DIFF REQ, RBC 4.14 L, MCV 90.7, MCH 30.2, MCHC 33.3, RDW 14.5, MPV 7.8, Gran % 59.4, Lymphocytes % 31.2, Monocytes % 7.7, Eosinophils % 0.9, Basophils % 0.8, Absolute Granulocytes 5.7, Absolute Lymphocytes 3.0, Absolute Monocytes 0.7 H, Absolute Eosinophils 0.1, Absolute Basophils 0.1, Serum Alcohol 253.0 06/23/17 1553: Urine Opiates Screen < 100, Methadone Screen 52, Barbiturate Screen < 60, Ur Phencyclidine Scrn < 6.00, Amphetamines Screen < 100, U Benzodiazepines Scrn < 85, Urine Cocaine Screen < 50, Urine Cannabis Screen 75.10 H (Treasure GAYTAN,Blanca) Addendum Addendum Met with patient for evening shift re-evaluation @ 18:40. Patient presented as calm, cooperative, and orientated x3. Patient was dressed in hospital scrubs and stated that "he was going to shower as he felt he needed it." Patient's speech was delayed and slurred, which he attributed to his having been given Ativan in the ED. Patient reports depression of 6 and anxiety of 5 on a scale of 0 to 10, 10 being most severe. Patient denies SI/HI. Patient identifies his dog as a protective factor to not commit suicide as no one could take care of his dog. Patient states no current VH, although spoke of VH he has experienced in the past. Patient denies current AH, although spoke of hearing a "high pitched squeel" for 10-15 minutes when he goes to sleep every night. Patient spoke of his avoiding watching TV and listening to talk radio as he believes that the people are talking to him and he is carrying on a conversation with them. patient states he is agreeable to taking his psych medications again and endorses that he drinks alcohol to self-medicate, which results in decompensation. Patient is agreeable to voluntary inpatient admission. He prefers to be admitted to [facility] as he is concerned he will not be able to get home to [place] if he is admitted to another hospital. (Neetu DU,[place]) Addendum 06/25/17 Crisis Re-Assessment: The pt presents alert, oriented, calm and cooperative with goal directed speech. The pt denies SI, HI and VH. The pt reports decreased AH resulting in better sleep and concentration. The pt stated he has a long hx of difficulty sleeping but slept really well last night. The pt believes taking his medication while in the ED has been helpful. The pt reports decreased VH. The pt stated he feels better and requested discharge home today with follow up at [facility]. The pt stated that while he is in the ED he is worried about his dog receiving inadequate care. The pt stated his AH have been different recently. The pt reports he is less often hearing multiple, mumbled voices and more often hearing a high pitch squeal. The pt continues to report receiving messages from the TV. The pt reports he has not smoked crack in about a month and will not use again. The pt stated smoking crack increased his psychosis. Discussed updated pt presentation with Dr. Herring who then assessed the pt. Plan remains for voluntary admission. The pt stated he is in agreement with this plan. 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 Physical Limitations (Interventions): None noted Psychiatric Treatment History Psych Treatment Psychiatric Treatment Yes Inpatient Treatment Yes Outpatient Treatment Yes Location of Treatment [facility], [facility] and [facility] Reason for Treatment Alcohol abuse and Schizophrenia Dates of Treatment CP 2013, Current with [facility]. Response to Treatment He does not feel that his treatment or medications have been helpful. Diagnosis by History: Schizophrenia Substance Use/Abuse History Drug Use/Abuse 1 Substances Used/Abused Yes Substance Used/Abused Alcohol First Use 18 years old Last Used Yesterday; 06/23/2017 How much used/taken "2 pints of Vodka daily." How often Daily For how long Unclear Route of use Oral Drug Use/Abuse 2 Substances Used/Abused Yes Substance Used/Abused Marijuana First Use 17 years old Last Used "Last week." How much used/taken Unclear How often The patient states that he only smoked Cannabis 1 x in the last 6 months. For how long He states that he used to use daily, however not recently. Route of use inhalation Substance Abuse Treatment Substance Abuse Treatment Past Substance Abuse [place] Yes Inpatient Treatment Yes Outpatient Treatment Yes Location of Treatment [facility], [facility], [place] and . of rehabs- does not remember Reason for Treatment Alcohol abuse. Dates of Treatment " a long time ago." Response to Treatment He states that he did have about 2 months sober, when he was attending [facility] in 2016, however states that he relapsed while in [facility] and was asked to leave. Comments: The patient reports that the only thing that helps his symptoms is drinking alcohol. (Treasure GAYTAN,Blanca) Current Mental Status Mental Status Orientation: Person, Place, Situation Affect: Flat Speech: WNL Neuro-vegetative: Concentration Poor, Helpless, Sleep Disturbance, Worthless, Useless, hopeless Appearance Appearance- Dress/Hygiene: The patient was sitting in the chair, in hospital attire with good eye contact and participation in the evaluationl. Behaviors Thought Process: WNL Thought Content: Auditory Hallucinations, Delusions, Paranoid, Visual Hallucinations, He believes that the governement or police put a chip in his head so that they can see through his eyes and hear through his ears., He has been seeing flashes of light and hearing high pitched squealing. Memory: WNL Insight: WNL SI/HI Risk Assessment Past Suicidal Ideation/Attempts No Current Suicidal Ideation/Att No Past Homicidal Ideation/Att: No Current Homicidal Ideation/Attempts No Degree of Intent: He states that he wishes that he was and that he would not care if he . He does state that he is not actively thinking about taking his own life, because of his dog. Danger To: Self Risk Factors: chronic/serious med cond., high anxiety/distress, SA/MH hospitalized, substance abuse, lives alone, male, limited support Lethality Ratin PTSD Checklist PTSD Done? 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 , mild Medical: Diabetes, Hypertension, Asthma Stressors: Transportation and chronic mental health issues Current GAF: 25 Comments: N/A (Blanca Amanda LCSW) Departure Disposition Psych Medical Clearance Date: 06/24/17 Medically Cleared at: 0730 Time Started: 744 Time Ended: 844 Date Disposition Established: 06/24/17 Time Disposition Established: 844 Plan for Disposition - Modality: Bed Search Facility: To be determined Contact: N/A Telephone: N/A Rationale for Disposition: The patient presents with worsening symptoms of depression and psychosis, after being medication and treatment non-compliant for about 1.5 months. He has been feeling helpless, hopeless, worthless, useless, anxious and depressed. He has good insight into his need for treatment and is motivated to attend. Case discussed with Dr. Herring and she finds the patient to be in need of an inpatient hospitalization at this time. Type of IP Admission: Voluntary Additional Instructions: N/A Referrals Kayleen Robbins APRN (PCP/Family) (Blanca Amanda LCSW)
[2017-06-24 10:00] VITALS: BP 144/69
--- NOTE | 2017-06-25 09:50 | ED PSYCHIATRIST/APRN CONSULT ---
Psychiatrist/SAMPLE CHECKER ED Consult Assessment and Plan: 51 year old gentleman with a history of psychotic sx, alcohol use, some depressive sx, seen by crisis yesterday in the ER, with worsening sx of psychosis since stopping his meds 1.5 months ago. He has a long standing delusion that he has a chip in his head and is being controlled at times however most recently this has been more concerning, with more referential thinking such as the TV talking to him, and that the government is controlling his behavior. He also hears a number of different high pitched noises, and sees lights, shadows. He had passive suicidal ideation with his dog as the main thing he lived for. He stated that alcohol was the only thing that helped with his sx and his alcohol was 253 on admission, cannabis was also positive. Stated he recently smoked crack cocaine which he normally doesnt do. Friend who brought him in noted that he was spiraling out of control. This morning we met and Mr. Roberts was pleasant, cooperative and tangential. He appears limited somewhat and concrete. His sleep has been impaired, appetite is good. He relayed that he thinks the tv is talking to him and giving him messages and that it has improved over the last two days since he has been sleeping much better here in the hospital, and was able to tolerate the tv screen in his room much better. He endorsed a number of hallucinations but none since his ER visit, in addition to his chronic delusions about the chip controlling his behavior. Despite this, he did not appear in great distress, was not actively hallucinating and was aware that he has been struggling with this for some time. He wanted to go home to see his dog, but noted that he has friends caring for her. We discussed med adjustments in order to further stabilize him, and he agreed to them and agreed to go to [facility] as soon as he was discharged. MSE: middle aged man, average build, in hospital gown. Calm cooperative. Fair eye contact. No tic or tremor. His affect is constricted and mood is somewhat down. Thinking becomes tangential but is not grossly disorganized. thought content positive for various persecutory delusions about a chip in his brain, referential thinking about the tv. He denies current hallucinations and is not internally preoccupied, but endorses recent hallucinations. Cognition appears below average. His insight is fair to improving and judgment is fair. A: 51 year old man with psychotic illness, etoh use, some depressive sx, came in with relapse of psychotic sx in context of med nonadherence and intoxication. He has risks associated with high alcohol use and nonadherence, in addition to chronic psychotic sx which increase his baseline risk of violence to self.others while untreated and in acute withdrawal phase. Mitigate these risks with support from his friends, his dog and involvement in treatment in the past. Address: Psychosis increase trilafon to 8mg twice daily, he has been stabilizing already with sleep, no alcohol and re-starting his meds; abilify 30mg EPS benztropine 1mg twice daily Gabapentin 300mg tid for anxiety sx Continues to need inpatient admission, on a voluntary basis which he is in agreement with. He appears to continue to stabilize clinically even in the last few days so his risk can be re-assessed daily, will need collateral from Care about missed appts and discharge planning.
--- NOTE | 2017-06-26 12:28 | IP CRISIS DIAG ASSESS PSYCH ---
Diagnostic Assessment Basic Assessment Insurance Authorization: Insurance #1: Insurance name: MEDICARE A Phone number: Policy number: [id number] Group number: Authorization number: Primary Care Physician: Patient's PCP: Kayleen Robbins APRN PCP's Patient's Quote: " I stopped taking my antipsychotic medications about 1.5 months ago." Present Illness: The patient is a 51 year old, male self presenting to the ED with worsening symptoms of depression and psychosis. The patient presents as alert, oriented, calm and cooperative with good insight into his symptoms. He has a long history of mental health and substance abuse issues with subsequent treatment episodes. He states that he has been taking antipsychotics for 30 years and he did not get any benefit from them, therefore about 1.5 months ago he stopped taking his medications. He has been in treatment with [facility], however states that he also stopped attending treatment about 1.5 months ago. He reports that he has been experiencing worsening depression (rating it a 7 or 8 out of 10, 10 being the most severe), anxiety (rating it a 10 out of 10, 10 being most severe) and increased paranoia, VH and AH. He states that he would like to restart medications, even though he does not think they will help. He reports feeling helpless, hopeless, useless and worthless secondary to his mental health issues. He has been hearing high pitched squealing, and notes that it is worrisome to him, because he does not know when it will stop and has no control over it. He has been seeing flashes of lights and shadows, noting that he has seen gremlins, in the past. He reports a long standing delusion that the government or police have put a chip in his brain, to see out of his eyes and to hear out of his ears. He states that because of the chip his dreams are sculpted by his brain, noting this is very distressing for him. He reports that the only thing that helps his symptoms is alcohol, therefore has been drinking 2 pints of vodka, daily. He reports that he has had decreased concentration, motivation and has been spending most of his days sleeping. He does not have active suicidal ideations or a plan, however wishes that he was and states that he would not care if he were . He states that his dog, Manju is the only thing he lives for and that he would not kill himself, because he would not do that to his dog. He has a history of smoking Cannabis, noting that he has only used 1 time in the last 6 months. He resides alone with his dog in an apartment, is and has 3 children (he only has contact with 1 daughter). He has been on Social Security Disability for the last 10 years. He reports that in addition to his mental health symptoms, that transportation is a significant issue for him. He does state that his friend, Talisha ([phone]), is very supportive and assists with transportation for him. SW spoke to Talisha, who states that the patient has been spiraling out of control. Talisha states that the patient stopped his medications and has been angry, shaking and pulling at his hair. Talisha states that the patient has been complaining of hearing beeps and buzzers and seeing flashing lights. Talisha states that the patient always believes that the government put a chip in his brain. Talisha reports that in addition to drinking alcohol, that the patient has been smoking Crack Cocaine. Talisha believes that he needs to be back on his medications. Patient's Address: [address] [place] [address] Other Phone Number: Who Do You Live With? Other (see notes) Feel Safe Where You Live? Yes Feel Safe in Your Relationship Yes Marital Status: Do You Have Children? Yes Ages? 28,25,22 Primary Language? Kyrgyz Language(s) Spoken At Home: Kyrgyz Family/Informants Interviewed: Friend Talisha Madison- [phone] Allergies - Coded Allergies: Penicillins (HAD A KID 06/23/17) quetiapine (Restless legs, difficulty breathing (From 2009) on 1000 mg/d ) Current Medications - Scheduled Medications Albuterol Sulfate (Proventil Hfa) 6.7 GM HFA.AER.AD 2 PUF INH Q4 WHEEZING #1 INHAL Prescribed by Walt COSTELLO,Sandhya on 12/11/15 Last Taken: 06/22/17 Aspirin (Ecotrin*) 325 MG TABLET. 1 TAB PO QPM HEART/BLOOD (Reported) Entered as Reported by Lpue Wilson on 06/28/161601 Benztropine Mesylate (Unknown Strength) TABLET (Unknown Dose) PO QPM MENTAL HEALTH #30 (Reported) Entered as Reported by Lupe Wilson on 06/23/172127 Diltiazem HCl (Cardizem Cd) 180 MG CAP.ER.24H 1 CAP PO DAILY HEART #90 ( Reported) Entered as Reported by Noa Morrow on 11/06/151912 Fenofibric Acid (Choline) (Fenofibric Acid) 135 MG CAPSULE.DR 1 CAP PO DAILY CHOLESTEROL #90 (Reported) Entered as Reported by Noa Morrow on 11/06/151913 Last Taken: Unknown Dose at an unknown date and time Fluticasone/Salmeterol (Advair 250-50 Diskus) 250 MCG-50 MCG/DOSE BLST.W.DEV 1 PUF INH BID SOB (Reported) Entered as Reported by Nel Gamble on 03/11/162221 Last Taken: 06/22/17 Gabapentin (Unknown Strength) CAPSULE (Unknown Dose) PO TID MOOD #90 ( Reported) Entered as Reported by Lupe Wilson on 06/23/172126 Glimepiride 4 MG TABLET 1 TAB PO BID DM #90 (Reported) Entered as Reported by Noa Morrow on 11/06/151911 Last Taken: 06/22/17 Insulin Glargine,Hum.rec.anlog (Lantus Solostar) 100 UNIT/ML (3 ML) INSULN.PEN 25 UNIT SC QPM DM #15 (Reported) Entered as Reported by Lupe Wilson on 06/28/161606 Insulin Glargine,Hum.rec.anlog (Lantus Solostar) 100 UNIT/ML (3 ML) INSULN.PEN 15 UNITS SC QAM DM (Reported) Entered as Reported by Lupe Wilson on 06/23/172121 Lisinopril 30 MG TABLET 1 TAB PO DAILY B/P #90 (Reported) Entered as Reported by Noa Morrow on 11/06/151912 Magnesium Oxide (Magnesium) 400 MG CAPSULE 1 CAP PO DAILY SUPPLEMENT ( Reported) Entered as Reported by Lupe Wilson on 06/23/172122 Multivitamin (Daily Value) 1 EACH TABLET 1 TAB PO DAILY SUPPLEMENT (Reported) Entered as Reported by Lupe Wilson on 06/28/16 1602 Last Taken: 06/22/17 Olanzapine 20 MG TABLET 1 TAB PO BID MENTAL HEALTH #90 (Reported) Entered as Reported by Noa Morrow on 11/06/151911 Last Taken: Unknown Dose at an unknown date and time Perphenazine (Unknown Strength) TABLET (Unknown Dose) PO QPM MENTAL HEALTH #30 (Reported) Entered as Reported by Lupe Wilson on 06/23/172125 Sitagliptin Phosphate (Januvia) 100 MG TABLET 1 TAB PO DAILY DIABETES #90 ( Reported) Entered as Reported by Noa Morrow on 11/06/151913 Vortioxetine Hydrobromide (Brintellix) (Unknown Strength) TABLET (Unknown Dose ) PO DAILY MENTAL HEALTH #30 (Reported) Entered as Reported by Lupe Wilson on 06/23/172130 Consequences of Psych Med Use: pt reports being off medications past few months Toxicology Screen Completed? Yes Results: positive Symptoms of Use: positive etoh and cannabis; also reported cocaine use Past History Past Medical History Medical History: Hypertension, NIDDM ASTHMA Past Surgical History Surgical History none Abuse/Trauma History Trauma History/Current Trauma: Denies Legal History Current Legal Status: none Psychosocial History Strengths/Capabilities: The patient has good insight into his need for treatment and is motivated to attend. Physical Limitations (Interventions): None noted Psychiatric Treatment History Psych Treatment Psychiatric Treatment Yes Inpatient Treatment Yes Outpatient Treatment Yes Location of Treatment [facility], [facility] and [facility] Reason for Treatment Alcohol abuse and Schizophrenia Dates of Treatment CP 2013, Current with [facility]. Response to Treatment He does not feel that his treatment or medications have been helpful. Diagnosis by History: Schizophrenia Risk Factors: chronic/serious med cond., high anxiety/distress, SA/MH hospitalized, substance abuse, lives alone, male, limited support Substance Use/Abuse History Drug Use/Abuse minimum 12mo Hx Substances Used/Abused Yes Substance Used/Abused Marijuana First Use 17 years old Last Used "Last week." How much used/taken Unclear How often The patient states that he only smoked Cannabis 1 x in the last 6 months. For how long He states that he used to use daily, however not recently. Route of use inhalation Substance Abuse Treatment Substance Abuse Treatment Past Substance Abuse [place] Yes Inpatient Treatment Yes Outpatient Treatment Yes Location of Treatment [facility], [facility], [place] and . of rehabs- does not remember Reason for Treatment Alcohol abuse. Dates of Treatment " a long time ago." Response to Treatment He states that he did have about 2 months sober, when he was attending [facility] in 2017, however states that he relapsed while in [facility] and was asked to leave. Education History Highest Level of Education: high school/GED Preferred Learning Style: visual, auditory, experiential Current Mental Status Mental Status Orientation: Person, Place, Situation Affect: Flat Speech: WNL Neuro-vegetative: Concentration Poor, Helpless, Sleep Disturbance, Worthless, Useless, hopeless Appearance Appearance- Dress/Hygiene: The patient was sitting in the chair, in hospital attire with good eye contact and participation in the evaluationl. Behaviors Thought Process: WNL Thought Content: Auditory Hallucinations, Delusions, Paranoid, Visual Hallucinations, He believes that the governement or police put a chip in his head so that they can see through his eyes and hear through his ears. He has been seeing flashes of light and hearing high pitched squealing. Memory: WNL Insight: WNL SI/HI Risk Assessment - Minimum 6mo History- Past Suicidal Ideation/Attempts No Current Suicidal Ideation/Att No Past Homicidal Ideation/Att: No Current Homicidal Ideation/Attempts No Degree of Intent: He states that he wishes that he was and that he would not care if he . He does state that he is not actively thinking about taking his own life, because of his dog. Danger To: Self Risk Factors: chronic/serious med cond., high anxiety/distress, SA/MH hospitalized, substance abuse, lives alone, male, limited support Lethality Ratin Needs/Init TX Plan/Goals: Psychiatric Evaluation Medication assessment Individual, group and family meetings Coordinated discharge planning AUDIT-C Questionnaire: AUDIT-C Questionnaire: Response Value ETOH use in the past year 4 or more per week 4 # drinks typical/day 10 or more 4 6 or > drinks per occasion Daily/Almost Daily 4 Total 12 DSM5/PS Stressors/Medical Prob Diagnosis' (DSM 5, Stressors, Medical): F20.9 Schizophrenia F10.20 Alcohol Use Disorder, severe 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 Pt reports return of symptoms.
[2017-06-26 13:36] VITALS: BP 115/76
[2017-06-26 16:36] VITALS: BP 145/76
[2017-06-26 19:55] VITALS: BP 139/89
[2017-06-26 19:58] VITALS: BP 139/89
[2017-06-27] VITALS (7 sets, daily range): BP systolic 104–154; BP diastolic 71–87
--- NOTE | 2017-06-27 13:24 | History & Physical ---
General Information and HPI MD Statement: I have seen and personally examined MIKE LANGE and documented this H&P. The patient is a 51 year old M who presented with a patient stated chief complaint of "I stopped taking my antipsychotics". Source of Information: patient, old records Exam Limitations: unable to give history History of Present Illness: 51-year-old white male with a long strip of schizophrenia stated he stopped taking his psych meds about a month and a half ago because they're not working" to the ER with racing thoughts unable to concentrate having visual and auditory hallucinations. No suicidal ideations. Also drinking alcohol every day for all those reasons is admitted for evaluation and treatment Allergies/Medications Allergies: Coded Allergies: Penicillins (HAD A KID 06/23/17) quetiapine (Restless legs, difficulty breathing (From 2009) on 1000 mg/d ) Home Med list Albuterol Sulfate (Proventil Hfa) 6.7 GM HFA.AER.AD 2 PUF INH Q4 WHEEZING Aspirin (Ecotrin*) 325 MG TABLET.DR 1 TAB PO QPM HEART/BLOOD (Reported) Benztropine Mesylate (Unknown Strength) TABLET (Unknown Dose) PO QPM MENTAL HEALTH (Reported) Diltiazem HCl (Cardizem Cd) 180 MG CAP.ER.24H 1 CAP PO DAILY HEART (Reported ) Fenofibric Acid (Choline) (Fenofibric Acid) 135 MG CAPSULE.DR 1 CAP PO DAILY CHOLESTEROL (Reported) Fluticasone/Salmeterol (Advair 250-50 Diskus) 250 MCG-50 MCG/DOSE BLST.W.DEV 1 PUF INH BID SOB (Reported) Gabapentin (Unknown Strength) CAPSULE (Unknown Dose) PO TID MOOD (Reported) Glimepiride 4 MG TABLET 1 TAB PO BID DM (Reported) Insulin Glargine,Hum.rec.anlog (Lantus Solostar) 100 UNIT/ML (3 ML) INSULN.PEN 25 UNIT SC QPM DM (Reported) Insulin Glargine,Hum.rec.anlog (Lantus Solostar) 100 UNIT/ML (3 ML) INSULN.PEN 15 UNITS SC QAM DM (Reported) Lisinopril 30 MG TABLET 1 TAB PO DAILY B/P (Reported) Magnesium Oxide (Magnesium) 400 MG CAPSULE 1 CAP PO DAILY SUPPLEMENT ( Reported) Multivitamin (Daily Value) 1 EACH TABLET 1 TAB PO DAILY SUPPLEMENT (Reported) Olanzapine 20 MG TABLET 1 TAB PO BID MENTAL HEALTH (Reported) Perphenazine (Unknown Strength) TABLET (Unknown Dose) PO QPM MENTAL HEALTH ( Reported) Sitagliptin Phosphate (Januvia) 100 MG TABLET 1 TAB PO DAILY DIABETES ( Reported) Vortioxetine Hydrobromide (Brintellix) (Unknown Strength) TABLET (Unknown Dose ) PO DAILY MENTAL HEALTH (Reported) Compliance With Home Meds: POOR Past History Travel History Traveled to [place] past 21 day No Medical History Neurological: peripheral neuropathy EENT: NONE Cardiovascular: hypertension, hyperlipidemia Respiratory: COPD Gastrointestinal: NONE Hepatic: NONE Renal: NONE Musculoskeletal: NONE Psychiatric: alcohol dependence, schizophrenia Endocrine: diabetes Blood Disorders: NONE Cancer(s): 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 MOTHER (Ovarian Cancer). FATHER (Prostate cancer). Psychosocial History Where do you live? Home Services at Home: None ETOH Use: alcoholic Illicit Drug Use: cocaine, marijuana Review of Systems Review of Systems Constitutional: Reports: see HPI. Exam & Diagnostic Data Last 24 Hrs of Vital Signs/I&O Vital Signs Date Time Temp Pulse Resp B/P B/P Pulse O2 O2 Flow FiO2 Mean Ox Delivery Rate 06/27 1231 98 104/77 06/27 1230 85 144/77 06/27 0848 96.9 91 18 115/71 06/27 0806 96.9 91 115/71 06/27 0803 96.9 91 115/71 06/26 1958 98.1 100 139/89 06/26 1955 98.1 100 139/89 06/26 1636 97.5 92 145/76 06/26 1636 97.5 92 145/76 06/26 1554 98.0 99 18 149/83 99 Room Air 06/26 1544 98.0 99 18 149/83 99 06/26 1443 98.4 104 18 148/90 96 06/26 1336 98.4 110 18 115/76 06/26 1335 98.4 110 18 115/76 06/26 1320 98.4 110 18 115/76 100 Intake & Output 06/27 1600 06/27 0800 06/27 0000 Intake Total Output Total Balance Patient 194 lb Weight Physical Exam General Appearance Alert, Oriented X3, No Acute Distress Skin No Rashes, No Breakdown, No Significant Lesion HEENT PERRLA, EOMI Neck Supple, No JVD, No thryomegaly, +2 Carotid Pulse wo Bruit Lymphatic Axillary nl, Cervical nl Cardiovascular Regular Rate, No Murmurs Lungs Clear to Auscultation, Normal Air Movement Abdomen Normal Bowel Sounds, Soft, No Tenderness, No Hepatospenomegaly Neurological Exam Findings: Normal Gait, Normal Speech, Strength at 5/5 X4 Ext, Normal Tone, Sensation Intact, Cranial Nerves 3-12 NL, Reflexes 2+ Cranial Nerves II through XII: Intact Extremities No Cyanosis, No Edema, Normal Pulses Vascular Normal Pulses, Pulses Symmetrical Last 24 Hrs of Labs/Graeme: Laboratory Tests 06/27/17 0625: Hemoglobin A1c 8.3 H Laboratory Tests 06/27/17 0625: Hemoglobin A1c 8.3 H Diagnostic Data ITS Data Unobtainable at this time Assessment/Plan As Ranked By This Provider Problem List: 1. Schizophrenia 2. ETOH abuse Miscellaneous Miscellaneous Documentation Attending Case Discussed With: Shiva Sanders MD Primary Care Physician: Kayleen Robbins APRN Patient sees these Specialists Psychiatry Level of Patient Care: [facility] Consults Needed: Consulting Specialty: Psychiatry Consulting Physician: Dr Sanders. Reason for Consult: schizophrenia and noncompliance with medications
--- NOTE | 2017-06-27 16:55 | Cons- Endocrinology ---
General Information and HPI Consulting Request Date of Consult: 06/27/17 Requested By: CHERELLE Jackson Reason for Consult: Uncontrolled diabetes type 2 Source of Information: patient Exam Limitations: no limitations History of Present Illness: 51-year-old white male with hx of schizophrenia and ETOH abuse who stopped taking his psych meds about two month, was brought to the ER with racing thoughts, unable to concentrate, having visual and auditory hallucinations. His glucose levels were elevated in the 200s and 300s. I was asked to see him for help managing his DM. At home he was on lantus 15 units am and 25 units at bedtime, Januvia 100 mg daily and Glimepiride 4 mg twice a day. He used to be on metformin which was discontinued when his Cr was 2.8. However, his Cr was 1.2 on this admission. On admission, his calcium was 10.7, TSH 1.2, CHOL 213, TRIG 235, HDL 83 and LDL 83. Allergies/Medications Allergies: Coded Allergies: Penicillins (HAD A KID 06/23/17) quetiapine (Restless legs, difficulty breathing (From 2009) on 1000 mg/d ) Home Med List: Albuterol Sulfate (Proventil Hfa) 6.7 GM HFA.AER.AD 2 PUF INH Q4 WHEEZING Aspirin (Ecotrin*) 325 MG TABLET.DR 1 TAB PO QPM HEART/BLOOD (Reported) Benztropine Mesylate (Unknown Strength) TABLET (Unknown Dose) PO QPM MENTAL HEALTH (Reported) Diltiazem HCl (Cardizem Cd) 180 MG CAP.ER.24H 1 CAP PO DAILY HEART (Reported ) Fenofibric Acid (Choline) (Fenofibric Acid) 135 MG CAPSULE.DR 1 CAP PO DAILY CHOLESTEROL (Reported) Fluticasone/Salmeterol (Advair 250-50 Diskus) 250 MCG-50 MCG/DOSE BLST.W.DEV 1 PUF INH BID SOB (Reported) Gabapentin (Unknown Strength) CAPSULE (Unknown Dose) PO TID MOOD (Reported) Glimepiride 4 MG TABLET 1 TAB PO BID DM (Reported) Insulin Glargine,Hum.rec.anlog (Lantus Solostar) 100 UNIT/ML (3 ML) INSULN.PEN 25 UNIT SC QPM DM (Reported) Insulin Glargine,Hum.rec.anlog (Lantus Solostar) 100 UNIT/ML (3 ML) INSULN.PEN 15 UNITS SC QAM DM (Reported) Lisinopril 30 MG TABLET 1 TAB PO DAILY B/P (Reported) Magnesium Oxide (Magnesium) 400 MG CAPSULE 1 CAP PO DAILY SUPPLEMENT ( Reported) Multivitamin (Daily Value) 1 EACH TABLET 1 TAB PO DAILY SUPPLEMENT (Reported) Olanzapine 20 MG TABLET 1 TAB PO BID MENTAL HEALTH (Reported) Perphenazine (Unknown Strength) TABLET (Unknown Dose) PO QPM MENTAL HEALTH ( Reported) Sitagliptin Phosphate (Januvia) 100 MG TABLET 1 TAB PO DAILY DIABETES ( Reported) Vortioxetine Hydrobromide (Brintellix) (Unknown Strength) TABLET (Unknown Dose ) PO DAILY MENTAL HEALTH (Reported) Review of Systems Review of Systems Constitutional: Reports: see HPI. Cardiovascular: Denies: chest pain. Respiratory: Denies: short of breath. GI: Denies: abdominal pain. Genitourinary: Denies: dysuria. Musculoskeletal: Denies: back pain. Hematologic/Endocrine: Denies: polyuria, polydipsia. 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 MOTHER (Ovarian Cancer). FATHER (Prostate cancer). Psychosocial History Where Do You Live? Home Services at Home: None ETOH Use: alcoholic Illicit Drug Use: cocaine, marijuana Exam & Diagnostic Data Last 24 Hrs of Vital Signs/I&O Vital Signs Date Time Temp Pulse Resp B/P B/P Pulse O2 O2 Flow FiO2 Mean Ox Delivery Rate 06/27 1638 92 147/77 06/27 1638 92 147/77 06/27 1231 98 104/77 06/27 1230 85 144/77 06/27 0848 96.9 91 18 115/71 06/27 0806 96.9 91 115/71 06/27 0803 96.9 91 115/71 06/26 1957 98.1 100 139/89 06/26 1954 98.1 100 139/89 Intake & Output 06/27 1600 06/27 0800 06/27 0000 Intake Total Output Total Balance Patient 194 lb Weight Physical Exam General Appearance: no apparent distress Neck: normal inspection Respiratory: lungs clear Cardiovascular: regular rate/rhythm Gastrointestinal: distention Extremities: no edema Labs/Graeme Results: Laboratory Tests 06/27 0625 Chemistry Hemoglobin A1c (4.2 - 5.8 %) 8.3 H Assessment/Plan Assessment/Plan 51-year-old white male with hx of schizophrenia and ETOH abuse who stopped taking his psych meds about two month, was brought to the ER with racing thoughts, unable to concentrate, having visual and auditory hallucinations. His glucose levels were elevated in the 200s and 300s. 1. DM management: --- diet control-- consistent carbohydrates diet 1; ---change Levemir to 20 units twice a day; ---continue Glimepiride 4 mg twice a day; ---continue Januvia 100 mg daily; ---add Novolog coverage before meals and Novolog coverage at bedtime-- detail see the inpatient DM orders; --- monitor FSGs. 2. hypercalcemia --- repeat calcium, check PTH and 25 OH vitamin D. will follow. Inpatient Diabetes Orders Before Each Meal: Bolus Insulin: Novolog < 80 mg/dl: no coverage 80-100 mg/dl: 4 units 101-120 mg/dl: 4 units 121-150 mg/dl: 4 units 151-200 mg/dl: 6 units 201-250 mg/dl: 8 units 251-300 mg/dl: 10 units 301-350 mg/dl: 12 units 351-400 mg/dl: 14 units > 400 mg/dl: 16 units Bedtime: Bolus Insulin: Novolog < 80 mg/dl: no coverage 80-100 mg/dl: no coverage 101-120 mg/dl: no coverage 121-150 mg/dl: no coverage 151-200 mg/dl: no coverage 201-250 mg/dl: no coverage 251-300 mg/dl: 2 units 301-350 mg/dl: 3 units 351-400 mg/dl: 4 units > 400 mg/dl: 5 units Consult Acknowledgment - Thank you for your consult request.
--- NOTE | 2017-06-27 17:23 | CPS PROVIDER INIT ASMT PSYCH ---
Psychiatric Admission Client Renewal Specialist's Note Reviewed: Yes Patient Seen and Examined: Yes Identifying Information: 51 yo DWM with schizophrenia who was admitted on 06/26/17 on a voluntary basis, referred by ER. Chief Complaint: Stopped antipsychotic medication 1.5 months ago. Worsening symptoms of depression and psychosis. Using alcohol and MJ. Has used crack. Reaction to Hospitalization: "Comfortable." History of Present Illness Onset of Illness: Worse x 1.5 months while off medication. Circumstances Leading to Admission: Stopped going to [facility] [place] ~1.5 months ago. Has been having increased PI. Having VH and AH. Feeling helpless, hopeless, useless and worthless. Hearing high-pitched squealing. Seeing flashes of lights and shadows. Has seen gremlins in the past. Longstanding delusion that the government or police put a chip in his brain. Reported finding alcohol helpful for symptoms. Has been drinking 2 pints of vokda/day. Reported decreased concentration and motivation and spending most of his days sleeping. Reported passive SI. Hx MJ; used once in last 6 months. Friend reported patient has been angry, shaking and pulling at his hair. Friend reported patient was using crack. Problem(s) Justifying Need for Admission: Worsening psychosis. Passive SI. Other HPI: Reports he is here because he stopped his antipsychotic medcation for 2 months, as he didn't think it was working for him. Doesn't believe he is schizophrenic. Thinks there is a device in his head that controls his mind, body, vision, hearing and dreams. "Basically think I'm a guinea pig robot from the [employer]." Reports drinking alcohol helps with his sympotms. He believes that coming off medications made him "go off the deep end." Reports he used crack cocaine for a couple of days 1-1.5 months ago. Last used MJ a couple of weeks ago. Past Psychiatric History Past Diagnosis(es)- if any: Schizophrenia. Substance abuse. Past Precipitating Factors- if any: Unknown. - Include inpatient and outpatient treatment Treatment History: OPTx at [facility] [place] with Noa Méndez and Carito Morgan, [facility]. Inpatient: [facility] x 1 years ago. 20 years ago. IOP at >1 year ago. History of Suicide Attempts or Gestures Denies. Substance Abuse History: Tobacco <1/2 ppd. Alcohol: 2 pints of vodka/day. MJ: 1x/3 months. Daily in past. Crack: last use 1 month ago. Allergies: Coded Allergies: Penicillins (HAD A KID 06/23/17) quetiapine (Restless legs, difficulty breathing (From 2009) on 1000 mg/d ) Home Med List: Lisinopril 30 mg daily Lipitor 10 mg daily Perphenazine ?dose qPM ?Abilify 30 mg daily Olanzapine 20 mg b.i.d. Insulin detemir 15 units qAM and 25 units qPM Neurontin 300 mg t.i.d. Januvia 100 mg daily Magnesium oxide 400 mg daily Advair 250/50 1 puff b.i.d. Cogentin 1 mg b.i.d. Diltiazem CD 180 mg daily ASA 325 mg qhs Glimepiride 4 mg b.i.d. 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 Substance Use: Brother drinks. Suicides: Denied. Social History Living Situation: Lives alone with dog. Significant Relationships (family/friends): Friend Talisha. 15 years. Has 2 sons, no contact for 15 years. Daughter, 29 yo, in [place], monthly contact. Education: HS graduate. Vocation/Occupation: Not working. On disability. Legal: Arrest at 18 yo for possession of MJ. Healthly Behaviors Screening Tobacco Screening Tobacco Use from ED Docu: Current Daily Use Daily Tobacco Use Amount/Type: => 5 Cigarettes daily - If tobacco counseling indicated - the following topics are required. - #1 Recognizing dangerous situations. - #2 Coping Skills. - #3 Basic information about quitting. Status of Tobacco Cessation Counseling: #1, #2 AND #3 Completed Cessation Med Status Nicotine Patch Ordered Alcohol Screening - ETOH screen POS if BAL >=80 or Audit-C>= M4/F3 Audit-C Score from Diag Assess: 12 Blood Alcohol Level: Lab Serum Alcohol 253.0 MG/DL 06/23/171646 Alcohol Use Screening Results: Pos per Audit C &/or BAL - If ETOH counseling indicated - the following topics are required. - #1 Express concern about the patient's - drinking at unhealthy levels, include informing - of national norms for moderate drinking: - men <= 14 drinks/week, max 4 drinks/occasion - women <= 7 drinks/week, max 3 drinks/occasion - #2 Providing feedback, including linking alcohol to - negative physical effects (liver injury, hypertension) - negative emotional effects (relationship problems and - depression) - negative occupational consequences (reduced work - performance) - #3 Advising the patient to abstain from alcohol or - to drink below national norms for moderate drinking - (as listed above). Status of ETOH Use Counseling: #1, #2 AND #3 Completed. Metabolic Screening - Screen if on a Neuroleptic Medication - Metabolic screening should include: - Blood Pressure, BMI, Glucose or Hgb A1c, & a - Lipid profile from within the past 365 days. Metabolic Screening () Not Applicable, patient not on a neuroleptic. OR () Patient on a neuroleptic(s) . Enter below results for Hemoglobin A1C, and lipid panel if obtained during the last 365 days. BMI: 27.000 Blood Pressure: 147/77 Laboratory Results From [facility] (If applicable): [x] Lab Cholesterol 213 MG/DL H 06/23/17 1647 Cholesterol/HDL Ratio 3 % 06/23/17 1647 HDL Cholesterol 83 mg/dL H 06/23/17 1647 Hemoglobin A1c 8.3 % H 06/27/17 0625 LDL Cholesterol, Calc 83 mg/dL 06/23/17 1647 Triglycerides 235 mg/dL H 06/23/17 1647 Exam and Plan Mental Status Examination Ambulation Status: Was in group. Walked to office without difficulty. Appearance: Casually dressed in T-shirt and pants. Overweight. Sitting in a chair in NAD. Attitude towards examiner: Calm, polite and cooperative. Psychomotor activity: No psychomotor agitation/retardation. Behavior: Unremarkable. Quality of speech: Speech normal in volume, rate and tone. Affect: Calm and blunted to flat. Mood: "I feel better." Mood: good. [place] sad last night after seeing older male peer on the unit with a walker. Sad now at 2-3/10. Anxiety 5/10 but "can go bisi-high immediately." Feels hopeless, helpless, worthless and guilty. Suicidal Ideation: Denies active SI. Feels indifferent about being alive. Homicidal Ideation: Denies HI. Hallucinations: Had AHs of beeps and buzzes 1 week ago. Last heard voices 9-10 months ago. Has had VHs of flashing lights but unable to say when he last had them. Paranoid/Delusional Material: Reports people can read his mind and there is a device in his head. Difficulties with thought organization: Thought process are organized. Insight: Poor. Judgment: Poor. Orientation: Ox3. Cognition: Grossly intact. Memory Function: Grossly intact. Estimate of intellectual functioning: Average. Assets/Strengths Patient Identified Assets/Strengths: "I love music, any kind." Impression/Plan Impression and Plan: Patient is here in the contact of CMI with medication/OPTx non-compliance x 1.5 months. Has been drinking and occasionally using MJ and crack. - Include all active medical diagnosis that require tx DSM 5 Diagnosis(es): Schizophrenia. Alcohol use d/o. Cannabis use d/o. Hx crack use d/o. DM. HTN. HLD. Neuropathy. COPD/asthma. - Initial Tx Plan for Active Psych & Medical Conditions Treatment Plan: The patient will be monitored on the unit for safety, psychosis, alcohol withdrawal and mood disorder. I have stopped Abilify, which competes at dopamine receptors with Trilafon. Patient has agreed to increase Trilafon dose to 16 mg b.i.d. Continue Cogentin. Additional information is needed from collaterals (friend Talisha and OPTx's at [facility] [place]). I have requested an endocrinology consult. Anticipate once clinically stable, that the patient will be discharged to home and be referred back to [facility] [place]. - Factors that would help patient function - in a less restrictive setting. Factors: Improvement in or absence of AHs and VHs. Improvement in or absence of passive SI. Improvement in or absence of paranoid delusions.
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
--- NOTE | 2017-06-27 18:13 | SOCIAL WORKER PROG NOTE PSYCH ---
Social Work Progress Note Progress Note This mortgage or loan underwriter met with patient. He stated that he came to the hospital due to return of symptoms after he stopped his medications about two months: "I didn't feel like I needed them anymore." Patient acknowledges the importance of taking his meds and that he was likely feeling better due to taking them. Patient identified specific sx as pulling his hair out, beating his chest, a general sense of uneasyness and crying all the time. He stated that he also feels, at times, that he is able to mind-read, receive messages from the tv and that he is the target for experiments from the [employer]. Patient reported VH of seeing bright flashes and AH of hearing a buzzing noise. Patient denied SI/HI and stated that he feels safe on this unit. He expressed interest in returning to Care for medication management, groups and working with case management. Patient was actively engaged in this conversation, spontaneous and appeared hyperverbal. He was cooperative and responded to redirection when needed.
[2017-06-28] VITALS (8 sets, daily range): BP systolic 115–138; BP diastolic 61–71
--- NOTE | 2017-06-28 10:38 | CP SOUTH PROGRESS NOTE PSYCH ---
Psych (Inpt) Progress Note Progress Note Include the following elements, when applicable: Involvement in the active treatment of the patient with behavioral observations of the patient and the patient's response to the treatment. Review of the ongoing treatment process in the context of the treatment plan. Indication of how multi-disciplinary staff members are carrying out the treatment plan. Plans for future interventions and recommendations for revision of the treatment plan. Liaison with other physicians/providers. Progress Note: Case and treatment plan discussed in team meeting. Staff reports that the patient is denying SI. Stays in bed. Dr. Dixon's consult appreciated. Patient seen at 10:07 a.m. "I feel wonderful for the most part." Pressuring for discharge today. Worried about his dog. Mood is "upset, p*ssed off." Rates sad mood 05/20 and anxiety 11/20. Denies feeling hopeless, helpless, worthless or guilty. Denies suicidal and homicidal ideation. Denies auditory and visual hallucinations and paranoid ideation. Reports sleep is okay. Reports appetite is really good. Reports energy is good. Tolerating medications well, without complaint. IMPRESSION: Slow progress. Continue present treatment plan. Patient submitted a three-day paper. A meeting with patient's friend, Talisha, will likely prove helpful. We will work on discharge planning with [facility]. Anticipate likely discharge by expiration of 3-day paper.
--- NOTE | 2017-06-28 17:06 | SOCIAL WORKER PROG NOTE PSYCH ---
Social Work Progress Note Progress Note This sheet writer spoke with patient's friend, Talisha, and scheduled a family meeting on 06/29/17 at 2:30pm. This sheet writer met with patient. He inquired about the process of the 3 day paper (which he signed earlier this week), to which he was informed. Patient was also informed of tomorrow's family meeting, and stated that his brother, Riley, will also be attending. Patient stated that he would consider revoking the 3 day paper tomorrow pending the outcome of that meeting. "I'll stay here another week if I need to." Patient discussed utilizing coping skills and accepting to manage his symptoms and Schizophrenia. He stated that Talisha has also removed all alcohol from his apartment. Patient expressed eagerness to return to [facility] where he has medication management with Mirian Barrera, individual therapy with Noa Méndez and case management with Alfred Ballard. Patient stated that he is not interested in IOP as he has completed it in the past. Patient denied SI/HI. He stated that he continues to hear sounds at times; he denies voice and/or command hallucinations. Patient stated that he has attempted to obtain visiting nurse services, however, unable to due to insurance. This sheet writer left a kacey Miller at [facility] with call back number.
[2017-06-29] VITALS (7 sets, daily range): BP systolic 123–132; BP diastolic 69–75
--- NOTE | 2017-06-29 12:59 | CP SOUTH PROGRESS NOTE PSYCH ---
Psych (Inpt) Progress Note Progress Note Include the following elements, when applicable: Involvement in the active treatment of the patient with behavioral observations of the patient and the patient's response to the treatment. Review of the ongoing treatment process in the context of the treatment plan. Indication of how multi-disciplinary staff members are carrying out the treatment plan. Plans for future interventions and recommendations for revision of the treatment plan. Liaison with other physicians/providers. Progress Note: Case and treatment plan discussed in team meeting. Staff reports that the patient is denying suicidal ideation. Not displaying any overt psychotic symptoms. Staff reports that the patient seems nervous. Family meeting is scheduled for around 2:30 PM today. Patient reportedly was up around 2:15 this morning staring at a wall. Patient seen at 12:08 PM with medical student. The patient seems much less irritable today. Speech is rambling at times. Reports things are better. He expects family meeting today with his friend, Talisha, and with his brother, Riley , at 2:30 PM. Eager for discharge. Displaying insight about admission being related to his being off of medications. Speech is mildly pressured. Affect is calm and euthymic. He read to us from his journal entry. Mood is good. States he felt sad yesterday when he saw someone outside walking their dog. Currently rates sad mood 3/10 and anxiety 7/10. Denies feeling hopeless, helpless or worthless. Does feel guilty. Denies active and passive suicidal ideation. Denies homicidal ideation. Reports auditory hallucinations lasting about 30 seconds, a little bit fuzzy, a hum, about one hour ago. This sounds like it could have been tinnitus. Denies hearing voices. Denies visual hallucinations and paranoid ideation. Continues to believe that he has a chip in his head. States it cannot be removed. He believes it was surgically placed when he was between the ages of [age]. Reports he is sleeping better. Describes appetite as really, really good. Energy: states "I just pace the halls." Tolerating medications well, without complaint. IMPRESSION: Slow progress. Continue present treatment plan. Await outcome of today's family meeting. Anticipate likely discharge by Monday, upon expiration of 3-day paper.
--- NOTE | 2017-06-29 17:57 | SOCIAL WORKER PROG NOTE PSYCH ---
Social Work Progress Note Progress Note Noa Hartley (medical student) and this telegraphic typewriter repairer met with the patient, his brother (Riley) and friend (Talisha) for a family meeting. Riley observed progress with the patient and stated that he looks "safe, lucid and healthy." Patient continues to report believing that there is a chip in his brain and that mind reading takes place. Talisha stated that she brought him to the ED due to the patient not taking his medications and being symptomatic. Dr. Sanders discussed medications as well as questions and concerns. Discharge plans were also reviewed. Patient was not agreeable to a 28 day program or other inpatient/ rehab (which had been recommended by [facility]). Patient stated that he was agreeable to returning to [facility] for outpatient treatment (medication management, group therapy, individual therapy and case management). Patient stated that he is not comfortable going to due to anxiety triggered by being with others, however, identified group therapy as tolerable and helpful. Riley and Talisha stated that they would be willing to follow up with the patient regularly (1-2 times per week) to ensure that he is taking his medications. Patient stated that he would also continue with primary care services through [facility]. This telegraphic typewriter repairer spoke with Angela regarding patient's refusal to enter rehab. She was agreeable to the patient returning to [facility] after discharge. This telegraphic typewriter repairer left a vm for Angela at [facility] ([phone]) requesting appointments for individual therapy, group therapy, medication management and case management. Call back number was provided.
--- NOTE | 2017-06-29 18:20 | PN- Diabetes ---
Assessment/Plan Diabetes Assessment: This 51-year-old male was admitted for treatment of schizophrenia and alcohol abuse. His sugars were very high on admission. This patient is presently on Levemir 20 units twice a day and sliding scale NovoLog. His NovoLog sliding scale begins with 4 units for 80-150 and goes up 2 units for each 50 points above 150. He is also on a bedtime sliding scale. We have stopped the patient's Januvia and glimepiride. The patient states he is trying to follow his diet. His blood sugars are beginning to come into control. He states sugars today were 190 before breakfast, 338 before lunch, and 245 before dinner. The patient's calcium was elevated on admission at 10.7 with an albumin of 4.7. His BP calcium however is more normal with a calcium of 10.125 hydroxy vitamin D of 29.5 and PTH of 29.3. The patient's creatinine is 1.2 and electrolytes are normal. Plan: Suggest continue Levemir 20 units twice a day. We will adjust his pre-meal insulin. Continue to monitor his sugar 4 times a day. Subjective Subjective: Feels improved Review of Systems Constitutional: Denies: chills, fever. Cardiovascular: Denies: chest pain. Gastrointestinal: Denies: abdominal pain, nausea, vomiting. Skin: Reports: no symptoms. Objective Last 24 Hrs of Vital Signs/I&O Vital Signs Date Time Temp Pulse Resp B/P B/P Pulse O2 O2 Flow FiO2 Mean Ox Delivery Rate 06/29 1555 97 129/70 06/29 1554 97 129/70 06/29 1225 92 132/75 06/29 1225 92 132/75 06/29 0822 89 123/69 06/29 0812 96.2 89 123/69 06/29 0802 96.2 89 123/69 06/28 2033 97.3 96 138/71 06/29 1999 97.3 96 138/71 Vital Signs Date Time Temp Pulse Resp B/P B/P Pulse O2 O2 Flow FiO2 Mean Ox Delivery Rate 06/29 1555 97 129/70 04 1554 97 129/70 04 1225 92 132/75 04 1225 92 132/75 06/29 0822 89 123/69 06/29 0812 96.2 89 123/69 06/29 0802 96.2 89 123/69 06/28 2033 97.3 96 138/71 06/29 1999 97.3 96 138/71 Physical Exam General Appearance: alert, awake, anxious Head: normal appearance Neck: normal inspection Respiratory: normal breath sounds Cardiovascular: regular rate/rhythm Current Medications: Current Medications Sig/Magdaleno Start time Last Medication Dose Route Stop Time Status Admin Acetaminophen 650 MG Q6P PRN 06/26 1230 AC PO Al Hydroxide/Mg 30 ML Q4-6 PRN PRN 06/26 1230 AC Hydroxide PO Albuterol Sulfate 2 PUF Q4P PRN 06/23 2300 AC INH Aspirin 325 MG AT BEDTIME 06/28 2100 AC 06/28 PO 2126 Atorvastatin Calcium 10 MG 1700 06/26 1700 AC 06/28 PO 1705 Benztropine Mesylate 1 MG Q6P PRN 06/26 1230 AC PO Benztropine Mesylate 1 MG Q6P PRN 06/26 1230 AC IM Benztropine Mesylate 1 MG BID 06/24 1022 AC 06/29 PO 0822 Budesonide/ 2 PUF BID 06/24 1024 AC 06/29 Formoterol Fumarate INH 0822 Diltiazem HCl 180 MG DAILY 06/24 0900 AC 06/29 PO 0822 Diphenhydramine HCl 50 MG .STK-MED ONE 06/288 DC PO 06/28 212 Diphenhydramine HCl 50 MG AT BEDTIME PRN 06/27 2215 AC 06/28 PO 2128 Gabapentin 300 MG Q6P PRN 06/26 1230 AC 06/28 PO 1021 Gabapentin 300 MG Q8 06/24 1400 AC 06/29 PO 1229 Haloperidol 5 MG Q6P PRN 06/26 1230 AC PO Haloperidol 5 MG Q6P PRN 06/26 1230 AC IM Insulin Aspart 0 TIDAC/HS 06/27 1700 AC 06/29 SC 1226 Insulin Detemir 20 UNITS BID 06/27 2100 AC 06/29 SC 0825 Lisinopril 30 MG DAILY 06/27 0900 AC 06/29 PO 0822 Lorazepam 2 MG Q6P PRN 06/26 1230 AC IM Lorazepam 2 MG Q2P PRN 06/26 1230 AC PO Lorazepam 1 MG Q2P PRN 06/26 1230 AC 06/26 PO 2001 Magnesium Hydroxide 30 ML AT BEDTIME NEED.. 06/26 1230 AC PO Magnesium Oxide 400 MG DAILY 06/24 1033 AC 06/29 PO 08 Melatonin 10 MG QPM 06/25 2130 AC 06/28 PO 2127 Multivitamins 1 TAB DAILY 06/26 1227 AC 06/29 PO 0822 Nicotine 21 MG DAILY 06/27 0900 AC 06/29 TOP 0821 Perphenazine 16 MG BID 06/27 2100 AC 06/29 PO 08 Polyethylene Glycol 17 GM DAILY 06/29 1416 AC 06/29 PO 1511 Findings Pertinent Lab/Graeme Results: Laboratory Tests 06/28 621 Chemistry Sodium (137 - 145 mmol/L) 142 Potassium (3.5 - 5.1 mmol/L) 4.8 Chloride (98 - 107 mmol/L) 102 Carbon Dioxide (22 - 30 mmol/L) 27 Anion Gap (5 - 16) 13 BUN (9 - 20 mg/dL) 23 H Creatinine (0.7 - 1.2 mg/dL) 1.2 Estimated GFR (>60 ml/min) > 60 BUN/Creatinine Ratio (7 - 25 %) 19.2 Calcium (8.4 - 10.2 mg/dL) 10.1 25-OH Vitamin D Total (30 - 100 ng/ml) 29.5 L PTH Intact (18.4 - 80.1 pg/ML) 29.3
[2017-06-30] VITALS (7 sets, daily range): BP systolic 122–143; BP diastolic 68–80
--- NOTE | 2017-06-30 08:37 | PN- Diabetes ---
Assessment/Plan Diabetes Assessment: 51-year-old white male with hx of schizophrenia and ETOH abuse who stopped taking his psych meds about two month, was brought to the ER with racing thoughts, unable to concentrate, having visual and auditory hallucinations. He was put on Levemir 20 units twice a day, Novolog coverage before meals and novolog coverage at bedtime. His glucose levels were 190, 338, 245, 261 and 278. Plan: 1. increase Levemir to 24 units twice a day; 2. adjust Novolog coverage before meals; detail see the inpatient DM order; 3. monitor FSGs. will follow. Inpatient Diabetes Orders Before Each Meal: Bolus Insulin: Novolog < 80 mg/dl: no coverage 80-100 mg/dl: 8 units 101-120 mg/dl: 8 units 121-150 mg/dl: 8 units 151-200 mg/dl: 10 units 201-250 mg/dl: 12 units 251-300 mg/dl: 14 units 301-350 mg/dl: 16 units 351-400 mg/dl: 18 units > 400 mg/dl: 20 units Subjective Subjective: He feels better. Objective Last 24 Hrs of Vital Signs/I&O Vital Signs Date Time Temp Pulse Resp B/P B/P Pulse O2 O2 Flow FiO2 Mean Ox Delivery Rate 06/30 0648 96.2 91 122/06/30 0748 96.2 91 12206/30 0744 97.0 98 18 127/73 06/29 2013 97.0 98 127/73 06/29 2000 97.0 98 127/73 06/29 1555 97 129/70 06/29 1554 97 129/70 06/29 1225 92 132/75 06/29 1225 92 132/75
--- NOTE | 2017-06-30 13:57 | CP SOUTH PROGRESS NOTE PSYCH ---
Psych (Inpt) Progress Note Progress Note Include the following elements, when applicable: Involvement in the active treatment of the patient with behavioral observations of the patient and the patient's response to the treatment. Review of the ongoing treatment process in the context of the treatment plan. Indication of how multi-disciplinary staff members are carrying out the treatment plan. Plans for future interventions and recommendations for revision of the treatment plan. Liaison with other physicians/providers. Progress Note: Case and treatment plan discussed in team meeting. Staff reports that the patient has been attending groups. Reporting improved mood. Engageable. Patient seen with medical student at 1:19 PM. Feels good. Finds his symptoms are "livable, tolerable" and "I'm functional with it." Affect is calm and euthymic. Mood is good. Rates sad mood 3/10. Rates anxiety about 5/10. Denies feeling hopeless, helpless, worthless or guilty. Denies suicidal and homicidal ideation. Denies hearing voices today. Denies visual hallucinations and paranoid ideation. Describes sleep as good and appetite as too good. Describes energy as having a lot built up. Tolerating medications well, without complaint. Patient reports his whole life has been full of irony and coincidences. IMPRESSION: Condition improving. Anticipate discharge on Monday to home with follow-up at [facility].
--- NOTE | 2017-06-30 13:58 | IP INCIDENTAL NOTE PSYCH ---
Incidental Note Notation: Voicemail left for Carito Morgan APRN to call me.
[2017-06-30] MEDS ORDERED: ATORVASTATIN CA10 M1 PO (14:51)
[2017-06-30] MEDS ORDERED: GABAPENTIN300 M2 PO (14:51)
[2017-06-30] MEDS ORDERED: LEVEMIR100 UNIT/1 SC (14:51)
[2017-06-30] MEDS ORDERED: DIPHENHYDRAMINE50 M1 PO (14:51)
[2017-06-30] MEDS ORDERED: NICOTINE PATCH1 EAC3 TOP (14:51)
[2017-06-30] MEDS ORDERED: PERPHENAZINE16 M1 PO (14:51)
[2017-06-30] MEDS ORDERED: BENZTROPINE MESY1 M1 PO (14:51)
[2017-06-30] MEDS ORDERED: MIRALAX119 GM PO (14:51)
[2017-06-30] MEDS ORDERED: NOVOLOG100 UNIT/2 SC (14:51)
[2017-06-30] MEDS ORDERED: MELATONIN5 M7 PO (14:51)
[2017-06-30] MEDS ORDERED: DEEP SEA44 ML NAS (14:51)
--- NOTE | 2017-06-30 15:01 | Patient Discharge Instructions ---
Psych Discharge Rust General Discharge Information Reason for Admission: Stopped going to [facility] ~1.5 months ago. Has been having increased PI. Having VH and AH. Feeling helpless, hopeless, useless and worthless. Hearing high-pitched squealing. Seeing flashes of lights and shadows. Has seen gremlins in the past. Longstanding delusion that the government or police put a chip in his brain. Reported finding alcohol helpful for symptoms. Has been drinking 2 pints of vokda/day. Reported decreased concentration and motivation and spending most of his days sleeping. Reported passive SI. Hx MJ; used once in last 6 months. Friend reported patient has been angry, shaking and pulling at his hair. Friend reported patient was using crack. Psy Discharge Primary Diag+ Schizophrenia Psy Discharge Secondary Diag+ Alcohol use disorder Cannabis use disorder Hx crack use disorder Diabetes mellitus Hypertension Hyperlipidemia Neuropathy COPD /asthma Summary Tests/Major Procedures Lab 25-OH Vitamin D Total 29.5 ng/ml L 06/28/17 0622 ALT 39 U/L 06/23/17 1647 AST 35 U/L 06/23/17 1647 Anion Gap 13 06/28/17 0622 BUN 23 mg/dL H 06/28/17 0622 Calcium 10.1 mg/dL 06/28/17 0622 Carbon Dioxide 27 mmol/L 06/28/17 0622 Chloride 102 mmol/L 06/28/17 0622 Cholesterol 213 MG/DL H 06/23/17 1647 Cholesterol/HDL Ratio 3 % 06/23/17 1647 Creatinine 1.2 mg/dL 06/28/17 0622 Estimated GFR > 60 ml/min 06/28/17 0622 Glucose 255 mg/dL H 06/23/17 1647 HDL Cholesterol 83 mg/dL H 06/23/17 1647 Hemoglobin A1c 8.3 % H 06/27/17 0625 LDL Cholesterol, Calc 83 mg/dL 06/23/17 1647 Potassium 4.8 mmol/L 06/28/17 0622 Sodium 142 mmol/L 06/28/17 0622 Triglycerides 235 mg/dL H 06/23/17 1647 Hct 37.5 % L 06/23/17 1647 Hgb 12.5 G/DL L 06/23/17 1647 Plt Count 273 /CUMM 06/23/17 1647 RBC 4.14 /CUMM L 06/23/17 1647 WBC 9.6 /CUMM 06/23/17 1647 Serum Alcohol 253.0 MG/DL 06/23/17 1647 Urine Cannabis Screen 75.10 NG/ML H 06/23/17 1553 Lab PTH Intact 29.3 pg/ML 06/28/17 0622 Studies Pending at [place]: None. Patient Instructions Contact Information Your Psychiatrist on [facility] was Shiva Sanders MD * If you are experiencing an emergency related to this hospitalization, please call [phone] to contact the treating psychiatrist or the psychiatrist-on- call. * To Request a copy of your medical records, please contact the Medical Records Department at [phone]. * To request results of studies pending at the time of discharge, please call [phone]. * Continue your Medications until directed to stop by your Healthcare provider. General Medication Information Please continue to take your new medications and your continued home medications , unless otherwise indicated on your discharge medication list, or unless directed by your MD or [facility] to stop them. Special Instructions Diet Diabetic Activity Normal Other Inst/Recommendations Stay clean. Take medications. Please see PCP and fertilizer supervisor. - Tobacco Use Treatment Offered Post DC Medications Offered: Script Given-See Med List Post DC Tobacco Treatment Plan: [place] [facility] Program Appt Date: 07/12/17 Program Appt Time: 1600 - EtOH/Drug Use D/O Treatment Offered Post DC Medications Offered: Med Not Indicated for D/O Post DC EtOH/SubAbuse TX Plan: Other SubAbuse/Dual Pgm ([facility]) Program Appt Date: 07/04/17 (Appointment time/date TBA.) Program Appt Time: 0900 (Appointment time/date TBA.) Metabolic Screening () Not Applicable, patient not on a neuroleptic. OR () Patient on a neuroleptic(s) . Enter below results for Hemoglobin A1C, and lipid panel if obtained during the last 365 days. BMI: 27.000 Blood Pressure: 132/72 Laboratory Results From [facility] (If applicable): [x] Lab Cholesterol 213 MG/DL H 06/23/17 1647 Cholesterol/HDL Ratio 3 % 06/23/17 1647 HDL Cholesterol 83 mg/dL H 06/23/17 1647 Hemoglobin A1c 8.3 % H 06/27/17 0625 LDL Cholesterol, Calc 83 mg/dL 06/23/17 1647 Triglycerides 235 mg/dL H 06/23/17 1647 Advance Directives Does the Patient have Medical Advance Directives No/Refused further info Does Pt have Psychiatric Advance Directives? No/Refused further info Does Patient have a Designated Surrogate Decision Maker: No Information About Psychiatric Advance Directives Provided? Refused Discharge Plan Post Hospital Treatment Plan: Returning to home. Follow up at [facility]. Please check fingersticks 4x/day (before each meal and at bedime). Please follow up with Kayleen Robbins APRN at [facility] and with an fertilizer supervisor.
--- NOTE | 2017-06-30 16:06 | SOCIAL WORKER PROG NOTE PSYCH ---
See Addendum Social Work Progress Note Progress Note This life underwriter met with patient. He reported that he was doing well and looking forward to discharging on Monday. Patient stated that he also slept well last night. "I'm not having any cravings to drink at all." Patient was informed of the appointments scheduled with Care (see below), which he accepted. He stated that he would attempt to reach Alfred Ballard, his case work aide, this afternoon/evening. He stated that he would ask Alfred to assist him in learning about using the bus to/from his appointments. Care appointments provided by Kalyn - 07/04/17 at 11:30am, Carito Barrera APRN, medication appointment - 07/05/17 at 9am, Noa Méndez, individual therapy appointment - 07/06/17 at 10:30am-11:30am, [employer] with Noa Ballard will contact the patient to schedule a case management appointment This life underwriter received a vm from Noa Méndez. This life underwriter returned the call at 3:34pm and left a vm.
--- NOTE | 2017-06-30 16:24 | SOCIAL WORKER PROG NOTE PSYCH ---
Social Work Progress Note Progress Note This chief underwriter spoke with Noa Méndez by phone, who stated that she had spoken with the patient by phone this afternoon and has concerns about delusions, paranoia in reference towards peers. This was relayed to nursing staff.
[2017-07-01] VITALS (10 sets, daily range): BP systolic 99–143; BP diastolic 56–78
--- NOTE | 2017-07-01 14:57 | CP SOUTH PROGRESS NOTE PSYCH ---
Psych (Inpt) Progress Note Progress Note Include the following elements, when applicable: Involvement in the active treatment of the patient with behavioral observations of the patient and the patient's response to the treatment. Review of the ongoing treatment process in the context of the treatment plan. Indication of how multi-disciplinary staff members are carrying out the treatment plan. Plans for future interventions and recommendations for revision of the treatment plan. Liaison with other physicians/providers. Progress Note: Chart reviewed. Progress discussed with nursing staff. Interviewed patient this morning. Patient reports feeling well, looking forward to discharge. Inquires about being started on campral. Says "if I don't stay away from alcohol this time I think this is it". We discuss naltrexone instead of campral given its greater ease of use (QDay versus TID dosing) and his lack of contraindication. R /B/SEs discussed and Yoel elects to start this med today. Otherwise, reports tolerating meds well, denies SEs, denies SI/HI or AVH today. Vitals and labs reviewed. Findings are: vitals wnl. No new labs. Mental status exam: Poorly groomed CM wearing tshirt with holes in it. Mildly sweaty. Fair eye contact. Speech monotonous. Mood "alright". Affect blunted. TP linear. TC without SI/HI. Denies perceptual disturbances. Cognition groslsy intac.t I/J fair. Assessment and plan: Continues to improve. Appropriate for alcohol use d/o pharmacotherapy with natlrexone. R/B/SEs discussed and patient agrees. Start 50 mg PO daily today. Otherwise, continue current management as per primary team.
[2017-07-02] VITALS (8 sets, daily range): BP systolic 132–144; BP diastolic 71–80
--- NOTE | 2017-07-02 11:01 | CP SOUTH PROGRESS NOTE PSYCH ---
Psych (Inpt) Progress Note Progress Note Include the following elements, when applicable: Involvement in the active treatment of the patient with behavioral observations of the patient and the patient's response to the treatment. Review of the ongoing treatment process in the context of the treatment plan. Indication of how multi-disciplinary staff members are carrying out the treatment plan. Plans for future interventions and recommendations for revision of the treatment plan. Liaison with other physicians/providers. Progress Note: Chart reviewed. Progress discussed with nursing staff. Interviewed patient this morning. Tolerated starting naltrexone well yesterday. Reported some difficulty with anxiety during the day in social situations. Discussed trying small dose of atarax today and increasing dose of GBP which he was in agreement with. HE denies SI/HI or AVH today. Vitals and labs reviewed. Findings are: vitals wnl. No new labs. Mental status exam: Poorly groomed CM wearing tshirt with holes in it. Again, mildly sweaty. Fair eye contact. Speech monotonous. Mood "alright". Affect blunted. TP linear. TC without SI/HI. Denies perceptual disturbances. Cognition groslsy intac.t I/J fair. Assessment and plan: Continues to improve. UPtitrate gabapentin to 600 mg TID and start atarax 25 mg PRN. Continue remainder of current management as per primary team.
[2017-07-03 07:45] VITALS: BP 132/72
[2017-07-03 07:50] VITALS: BP 132/72
[2017-07-03] MEDS ORDERED: NALTREXONE HCL50 M1 PO (10:05)
[2017-07-03] MEDS ORDERED: GABAPENTIN300 M2 PO (10:07)
--- NOTE | 2017-07-03 11:14 | PN- Diabetes ---
Assessment/Plan Diabetes Assessment: 51-year-old white male with hx of schizophrenia and ETOH abuse who stopped taking his psych meds about two month, was brought to the ER with racing thoughts, unable to concentrate, having visual and auditory hallucinations. Levemir was increased to 24 units twice a day, Novolog coverage before meals was adjusted ( FSG 80-150, 8 units; FSG 151-200, 10 units, etc). In addition, he is on novolog coverage at bedtime. His glucose levels were 216, 177, 339, 278. He is going home today. Plan: The discharge plan for DM: --- Lantus 24 units twice a day; ---Novolog coverage before meals--same scale as inpatient; ---monitor FSGs; ---f/u in office after discharge. Subjective Subjective: He is going home today. Objective Last 24 Hrs of Vital Signs/I&O Vital Signs Date Time Temp Pulse Resp B/P B/P Pulse O2 O2 Flow FiO2 Mean Ox Delivery Rate 07/03 0750 95.4 89 132/72 07/03 0745 95.4 89 132/72 07/02 1954 97.1 96 144/80 07/03 1951 97.1 96 144/80 07/02 1629 98 132/71 07/02 1619 98 132/71 07/02 1236 97 134/80 07/02 1209 97 134/80
--- NOTE | 2017-07-03 12:02 | IP INCIDENTAL NOTE PSYCH ---
Incidental Note Notation: Case d/w Crystal Morgan APRN.
[2017-07-03 12:04] VITALS: BP 142/74
[2017-07-03 12:20] VITALS: BP 142/74
--- NOTE | 2017-07-03 13:24 | CP SOUTH PROGRESS NOTE PSYCH ---
Psych (Inpt) Progress Note Progress Note Include the following elements, when applicable: Involvement in the active treatment of the patient with behavioral observations of the patient and the patient's response to the treatment. Review of the ongoing treatment process in the context of the treatment plan. Indication of how multi-disciplinary staff members are carrying out the treatment plan. Plans for future interventions and recommendations for revision of the treatment plan. Liaison with other physicians/providers. Progress Note: Dr. Rose' notes reviewed. Case and treatment plan discussed in team meeting. Staff reports that the patient is denying suicidal ideation. Had an okay day. Described as more isolative on Monday and more social on Monday. Patient seen at 9:40 AM. Reports "I'm good." Has no complaints. Affect is calm and euthymic. Reports mood is excellent but feels a little worked up because he is being discharged. He is looking forward to seeing his dog. Reports he is in a really good mood. Rates sad mood 3/10. States anxiety is very high at 7/10. Denies feeling hopeless, helpless, worthless or guilty. Denies active and passive suicidal ideation. Denies homicidal ideation. Reports he had a high-pitched sound in his left ear that lasted a few seconds. Denies hearing voices. Denies visual hallucinations. Denies paranoid ideation and magical boyd. The patient is oriented 3 except he gave the date as July 01 or 2017. Reports he slept a full 7.5 hours last night without awakening in the middle of the night. Reports appetite is really too good. Reports having a lot of energy. Tolerating medications well, without complaint. Feels ready and safe for discharge. IMPRESSION: Condition improved. Okay for discharge today to home with follow-up at [facility].
--- NOTE | 2017-07-03 15:05 | DISCHARGE SUMMARY REPORT-PSYCH ---
Visit Information Visit Dates/Diagnosis' Admission Date: 06/26/17 Discharge Date: 07/03/17 Reason for Admission: Stopped going to [facility] ~1.5 months ago. Has been having increased PI. Having VH and AH. Feeling helpless, hopeless, useless and worthless. Hearing high-pitched squealing. Seeing flashes of lights and shadows. Has seen gremlins in the past. Longstanding delusion that the government or police put a chip in his brain. Reported finding alcohol helpful for symptoms. Has been drinking 2 pints of vokda/day. Reported decreased concentration and motivation and spending most of his days sleeping. Reported passive SI. Hx MJ; used once in last 6 months. Friend reported patient has been angry, shaking and pulling at his hair. Friend reported patient was using crack. Psy Discharge Primary Diag: Schizophrenia Psy Discharge Secondary Diag: Alcohol use disorder Cannabis use disorder Hx crack use disorder Diabetes mellitus Hypertension Hyperlipidemia Neuropathy COPD /asthma Hospital Course Significant Lab Findings: Lab 25-OH Vitamin D Total 29.5 ng/ml L 06/28/17 0622 ALT 39 U/L 06/23/17 1647 AST 35 U/L 06/23/17 1647 Anion Gap 13 06/28/17 0622 BUN 23 mg/dL H 06/28/17 0622 Calcium 10.1 mg/dL 06/28/17 0622 Carbon Dioxide 27 mmol/L 06/28/17 0622 Chloride 102 mmol/L 06/28/17 0622 Cholesterol 213 MG/DL H 06/23/17 1647 Cholesterol/HDL Ratio 3 % 06/23/17 1647 Creatinine 1.2 mg/dL 06/28/17 0622 Estimated GFR > 60 ml/min 06/28/17 0622 Glucose 255 mg/dL H 06/23/17 1647 HDL Cholesterol 83 mg/dL H 06/23/17 1647 Hemoglobin A1c 8.3 % H 06/27/17 0625 LDL Cholesterol, Calc 83 mg/dL 06/23/17 1647 Potassium 4.8 mmol/L 06/28/17 0622 Sodium 142 mmol/L 06/28/17 0622 Triglycerides 235 mg/dL H 06/23/17 1647 Hct 37.5 % L 06/23/17 1647 Hgb 12.5 G/DL L 06/23/17 1647 Plt Count 273 /CUMM 06/23/17 1647 RBC 4.14 /CUMM L 06/23/17 1647 WBC 9.6 /CUMM 06/23/17 1647 Serum Alcohol 253.0 MG/DL 06/23/17 1647 Urine Cannabis Screen 75.10 NG/ML H 06/23/17 1553 Lab PTH Intact 29.3 pg/ML 06/28/17 0622 Course Complications: None. Consultations: The patient was seen by Dr. Dheeraj Linda for admission H&P. Please refer to his note for additional information. Drs. Dixon and Peyman managed the patient's diabetes. Dr. Dixon noted: " The discharge plan for DM: --- Lantus 24 units twice a day; ---Novolog coverage before meals--same scale as inpatient; ---monitor FSGs; ---f/u in office after discharge." Allergies: Coded Allergies: Penicillins (HAD A KID 06/23/17) quetiapine (Restless legs, difficulty breathing (From 2009) on 1000 mg/d ) Hospital Course/TX Response: The patient was monitored on the unit for safety, psychosis, alcohol withdrawal and mood disorder. He participated in multi-modal treatments on the unit. Antipsychotic, Trilafon, was used with dose tapered up to 16 mg b.i.d. Cogentin 1 mg b.i.d. was used to prevent side-effects. Patient seems to have a fixed delusion about there being a chip in his brain. AHs of voices have subsided although the patient likely has some tinnitus. Naltrexone was added in an effort to reduce alcohol cravings. Neurontin dose was increased. The patient had a productive family meeting with his brother and friend, Talisha. Diabetes was managed by endocrinologists. Progress note from date of discharge, 07/03/17: Dr. Rose' notes reviewed. Case and treatment plan discussed in team meeting. Staff reports that the patient is denying suicidal ideation. Had an okay day. Described as more isolative on Monday and more social on Monday. Patient seen at 9:40 AM. Reports "I'm good." Has no complaints. Affect is calm and euthymic. Reports mood is excellent but feels a little worked up because he is being discharged. He is looking forward to seeing his dog. Reports he is in a really good mood. Rates sad mood 3/10. States anxiety is very high at 7/10. Denies feeling hopeless, helpless, worthless or guilty. Denies active and passive suicidal ideation. Denies homicidal ideation. Reports he had a high-pitched sound in his left ear that lasted a few seconds. Denies hearing voices. Denies visual hallucinations. Denies paranoid ideation and magical boyd. The patient is oriented 3 except he gave the date as July 01 or 2017. Reports he slept a full 7.5 hours last night without awakening in the middle of the night. Reports appetite is really too good. Reports having a lot of energy. Tolerating medications well, without complaint. Feels ready and safe for discharge. IMPRESSION: Condition improved. Okay for discharge today to home with follow-up at [facility]. Discharge HBIPS - Tobacco Use Treatment Offered Post DC Medications Offered: Script Given-See Med List Post DC Tobacco Treatment Plan: [facility] Program Appt Date: 07/12/17 Program Appt Time: 1600 - EtOH/Drug Use D/O Treatment Offered Post DC Medications Offered: Script Given-See Med List (Naltrexone) Post DC EtOH/SubAbuse TX Plan: Other SubAbuse/Dual Pgm ([facility]) Program Appt Date: 07/04/17 Program Appt Time: 1130 Metabolic Screening - Screen if on a Neuroleptic Medication - Metabolic screening should include: - Blood Pressure, BMI, Glucose or Hgb A1c, & a - Lipid profile from within the past 365 days. Metabolic Screening () Not Applicable, patient not on a neuroleptic. OR () Patient on a neuroleptic(s) . Enter below results for Hemoglobin A1C, and lipid panel if obtained during the last 365 days. BMI: 27.000 Blood Pressure: 142/74 Laboratory Results From [facility] (If applicable): [x] Lab Cholesterol 213 MG/DL H 06/23/17 1647 Cholesterol/HDL Ratio 3 % 06/23/17 1647 HDL Cholesterol 83 mg/dL H 06/23/17 1647 Hemoglobin A1c 8.3 % H 06/27/17 0625 LDL Cholesterol, Calc 83 mg/dL 06/23/17 1647 Triglycerides 235 mg/dL H 06/23/17 1647 Discharge Instructions General Discharge Information Multiple Neuroleptics: ([x]) Not Applicable OR Document below three failed attempts at monotherapy, or a plan to taper to monotherapy, or augmentation of Clozapine. () Discharge Diet Diabetic Discharge Activity Normal DC Disposition: Returning to home. Referrals Ordered Referrals Provider Referral 07/04/17 For Groups: [[facility]] [address], [place] [phone] Medication Appointment: 07/04/17, at 11:30am with Carito Barrera APRN Provider Referral 07/05/17 For Groups: [[facility]] [address], [place] [phone] Individual Therapy Appointment: 07/05/17, at 9am with Noa Méndez LCSW Provider Referral 07/06/17 For Groups: [[facility]] [address] [phone] Group: [employer] on 07/06/17 from 10:30am to 11:30am with Noa Méndez Provider Referral For Groups: [[facility]] [address] [phone] Randy Ballard with [facility] Case management will contact you to schedule an appointment Provider Referral 07/12/17 For Providers: [[facility]] For Groups: [Smoking Cessation Group] Post Discharge Smoking Cessation Group [address] [phone] Group meets every other Monday at 4pm Next group, 07/12/17, at 4pm Prescriptions Stop taking the following medications: Olanzapine (Olanzapine) 20 MG TABLET ORAL TWICE DAILY Qty = 90 Glimepiride (Glimepiride) 4 MG TABLET ORAL TWICE DAILY Qty = 90 Sitagliptin Phosphate (Januvia) 100 MG TABLET ORAL DAILY Qty = 90 Fenofibric Acid (Choline) (Fenofibric Acid) 135 MG CAPSULE.DR ORAL DAILY Qty = 90 Insulin Glargine,Hum.rec.anlog (Lantus Solostar) 100 UNIT/ML (3 ML) INSULN.PEN Inject into fatty tissue Every night Qty = 15 Insulin Glargine,Hum.rec.anlog (Lantus Solostar) 100 UNIT/ML (3 ML) INSULN.PEN Inject into fatty tissue Every Morning Perphenazine (Perphenazine) (Unknown Strength) TABLET ORAL Every night Qty = 30 Gabapentin (Gabapentin) (Unknown Strength) CAPSULE ORAL THREE TIMES DAILY Qty = 90 Benztropine Mesylate (Benztropine Mesylate) (Unknown Strength) TABLET ORAL Every night Qty = 30 Vortioxetine Hydrobromide (Brintellix) (Unknown Strength) TABLET ORAL DAILY Qty = 30 Continue taking these medications: Lisinopril (Lisinopril) 30 MG TABLET 1 Tablet ORAL DAILY Qty = 90 Comments: Last Taken:07/03/17 Time:0800 Diltiazem HCl (Cardizem Cd) 180 MG CAP.ER.24H 1 Capsule ORAL DAILY Qty = 90 Comments: Last Taken:07/03/17 Time:0800 Albuterol Sulfate (Proventil Hfa) 6.7 GM HFA.AER.AD 2 Puff Inhale through mouth Every 4 hours Qty = 1 Comments: Last Taken:07/01/17 Time:2300 Fluticasone/Salmeterol (Advair 250-50 Diskus) 250 MCG-50 MCG/DOSE BLST.W.DEV 1 Puff Inhale through mouth TWICE DAILY Comments: Last Taken:GIVEN SYMBICORT DURING HOSPITALIZATION Time:07/03 0800 Aspirin (Ecotrin*) 325 MG TABLET.DR 1 Tablet ORAL Every night Comments: Last Taken:07/02/17 Time:2200 Multivitamin (Daily Value) 1 EACH TABLET 1 Tablet ORAL DAILY Comments: Last Taken:07/03/17 Time:0800 Magnesium Oxide (Magnesium) 400 MG CAPSULE 1 Capsule ORAL DAILY Comments: Last Taken:07/03/17 Time:0800 Start taking the following new medications: Diphenhydramine HCl (Diphenhydramine HCl) 50 MG CAPSULE 1 Capsule ORAL AT BEDTIME as needed for INSOMNIA Qty = 14 No Refills Comments: Last Taken: Time:2300 Nicotine (Nicotine Patch) 21 MG/24 HOUR PATCH.TD24 21 Milligram On the skin DAILY Qty = 14 No Refills Comments: Last Taken:07/03/17 Time:0800 Atorvastatin Calcium (Atorvastatin Calcium) 10 MG TABLET 1 Tablet ORAL 5 PM Qty = 14 No Refills Comments: Last Taken:07/02/17 Time:1700 Benztropine Mesylate (Benztropine Mesylate) 1 MG TABLET 1 Tablet ORAL TWICE DAILY Qty = 28 No Refills Comments: Last Taken:07/03/17 Time:0800 Sodium Chloride (Deep Sea) 0.65 % SPRAY 2 [place] In the nose EVERY 4 HOURS NEEDED as needed for NASAL CONGESTION Qty = 1 No Refills Comments: Last Taken:06/30/17 Time:2200 Polyethylene Glycol 3350 (Miralax) 17 GRAM/DOSE POWDER 17 Gram ORAL DAILY Qty = 1 No Refills Comments: Last Taken:07/01/17 Time:0800 Insulin Detemir (Levemir) 100 UNIT/ML VIAL 24 Units Inject into fatty tissue TWICE DAILY Qty = 1 No Refills Instructions: 10 ml vial Comments: Last Taken:07/03/17 Time:0800 Insulin Aspart (Novolog) 100 UNIT/ML VIAL 0 Units Inject into fatty tissue BEFORE MEALS AND AT BEDTIME Qty = 1 No Refills Instructions: FS's: 80-150 8 units, 151-200 10 units, 201-250 12 units, 251-300 14 units, 301-350 16 units, 351-400 18 units, over 400 20units & call Comments: Last Taken:07/03/17 Time:14UNITS Melatonin (Melatonin) 5 MG TABLET 2 Tablet ORAL Every night Qty = 28 No Refills Comments: Last Taken:07/02/17 Time:2200 Naltrexone HCl (Naltrexone HCl) 50 MG TABLET 50 Milligram ORAL DAILY Qty = 14 No Refills Comments: Last Taken:07/03/17 Time:0800 Gabapentin (Gabapentin) 300 MG CAPSULE 2 Capsule ORAL EVERY 8 HOURS Qty = 84 No Refills Comments: Last Taken:07/03/17 Time:0800 Perphenazine (Perphenazine) 16 MG TABLET 1 Tablet ORAL TWICE DAILY Qty = 28 No Refills Comments: Last Taken:07/03/17 Time:0800 Other Inst/Recommendations Stay clean. Take medications. Please see PCP and manager intelligence. Studies Pending at Discharge None. Copies To: Nel Morgan APRN; Zack COSTELLO,[facility]
--- NOTE | 2017-07-03 16:13 | SOCIAL WORKER PROG NOTE PSYCH ---
Social Work Progress Note Progress Note This senior grant writer met with patient. He stated that he looked forward to discharging today and seeing his dog. He was agreeable to attending [facility] for outpatient treatment (see appointments below). He refused IOP at due to the cost. Patient stated that his primary care services are provided by [facility] and that he will schedule an appointment with them when needed. Patient denied SI/ HI. He denied AH today and stated that he occassionally hears beeping or buzzing noises when he experiences AH. Patient denied any cravings, triggers or urges to use. He identified a safety plan in which he would call the warm line, crisis lines, 911 or 211. Patient stated that he was not willing to accept a ride from his brother, Riley, or friend, Talisha. Patient discussed feeling frustrated when he understood Talisha to state yesterday that she would not longer provide rides. This senior grant writer and patient called Talisha together. Talisha explained that she was encouraging him to utilize [facility] services more. Patient maintained that he would not longer rely on her for transportation and that he refused a ride from her today, despite encouragement by this senior grant writer to accept the transportation. Patient stated that he planned to go to the bank and the pharmacy upon leaving the hospital today, and ultimately planned to return home. He verbally indicated understanding of the [facility] appointments, repeating them back to this senior grant writer by memory. Patient's discharge and discharge plan was reviewed with Robby Pace LCSW. This senior grant writer received a call from patient's brother, Riley, following discharge. Riley expressed concerns about the patient stating that the patient was banging his chest and pulling his hair. He stated that he left the hospital today and bought alcohol. Due to safety concerns, Riley stated that he would call 911. Faxed Referral(s) Referred To: [facility] Transition of Care Documents sent: Health Summary Faxed to: [facility], attn: Angela Fax #: [phone] Faxed by: Madelyn Bob LCSW Date faxed: 07/03/17 Time Faxed: [phone]
== END 2017-07-03 12:34 | DRG 885 ==
LOC: ERH 15:17 → ERHI 06-26 12:21 → CP SOUTH 06-26 12:21 → ENTRNSPT 06-26 15:42 → EDTRNSPT 06-26 15:47 → EDTRNSPTSTS 06-26 15:47 → CP SOUTH 06-26 15:57 → CMPTRNSPT 06-26 16:10 → ENRESERV 06-26 23:59 → CP SOUTH 06-29 10:37
PROVIDERS: Physician Assistant Medical
DX: F20.9 Schizophrenia, unspecified (principal); E11.40 Type 2 diabetes mellitus with diabetic neuropathy, unspecified; E78.5 Hyperlipidemia, unspecified; J44.9 Chronic obstructive pulmonary disease, unspecified; Z72.89 Other problems related to lifestyle; F12.90 Cannabis use, unspecified, uncomplicated; I10 Essential (primary) hypertension
CPT/HCPCS: 36415; 80307; 82436; G0463; G0480; J0515; J1630; J1815; J3490